=== PATIENT | female | born 1995 | race Caucasian/White ===

== ENCOUNTER 2017-04-23 14:53 | Emergency (ER) | payer OTHER, SELFPAY ==
[2017-04-23 15:24] VITALS: BP 109/75; PULSE 82; RESP 18; TEMP 37.4; O2SAT 100; BMI 16.8
--- NOTE | 2017-04-23 15:58 | HMH.EDUTC ---
[facility] [place] Disposition Clinical Impression: Encounter to obtain excuse from work Disposition: Home, Self-Care Condition on Discharge: Good Instructions: DI for Viral Syndrome Additional Instructions: Symptoms seem viral but also fit with other possible diagnosis. I was not able to rule out flu, strep, UTI or due to refusal of further testing. * no sign of bacterial infection. * Lots of fluids * rest * warm salt water gargles * warm fluids * sore throat lozenges * sleep elevated * humidifier/vaporizer * bland diet Referrals: Provider,Referral, MD [Primary Care Provider] - (See primary care or return to [facility] for new, worsening or persisting symptoms.) Forms: Work/School Release Time of Disposition: 16:12 Medical Decision Making Vital Signs: 04/23/17 15:24 Temperature 99.4 F Temperature Source Temporal Artery Scan Pulse Rate [Right Radial] 82 Respiratory Rate 18 Blood Pressure [Right Arm] 109/75 Blood Pressure Mean [Right Arm] 86 02 Sat by Pulse Oximetry 100 Oxygen Delivery Method Room Air - Donovan Inquiry Pt receiving controlled substance: No - Reevaluation(s) Reevaluation #1: Discussed possible differentials. pt refusing any testing including u/a, urine preg, strep or flu. States she knows it is none of those and just needs a work note. Aware accurate diagnosis is not possible but refusing still. I will take your best guess . pt's friend standing in [place] while I am speaking with ER MD regarding another pt. Standing pt has things to do and needs to go. Wanting note because that is all she needs . Aware I will work on discharge briefly once ERMD is finished looking at another pt with me. While working on discharge, friend up to nursing station again asking for work note. We have somewhere to be in 30 minutes . Pt aware she can leave without discharge if she needs to but that I am working on it at this time. The only thing she needs is the work note. Can't you just print that out now. Aware I will print that with the remaining of her discharge so she can go if she needs to but that I would recommend she wait to be discharged properly. [facility] [place] HPI - General Stated complaint: bad chen, sore throat Time Seen by Provider: 04/23/17 15:25 Mode of Arrival: Family Vehicle Source of Information: Patient Limitations: No Limitations Description of Symptoms (Recalled from Triage Doc. by RN): PT C/O MIGRAINE,DIARRHEA, VOMITING, SORE THROAT, EAR ACHE, BODY ACHES, AND CHILLS. HEENT Symptoms (Recalled from RN notes): Yes (MIGRAINE, EAR ACHE, SORE THROAT) Resp Symptoms (Recalled from RN notes): No Skin Symptoms (Recalled from RN notes): No MS Symptoms (Recalled from RN notes): No Functional Status (Recalled from RN notes): NA - History of Present Illness Provider Complaint: c/o feeling feverish, headache, bodyaches, chills, rhinorrhea, nasal congestion, onset of faint cough, vomiting, diarrhea, nausea all starting today while at work causing her to leave work. Two kids with flu less then 10 days ago. Patient for sure she doesn't have the flu or strep. Needs work excuse. Started w/ nausea last night. promethazine helped. Slept all night. Hasn't taken or tried anything today. Vomiting 2-3 times today but has since ate BBQ sandwich and chips. Diarrhea 2-3 times. Described as watery. Denies abdominal pain. - Related Data Home Medications Medication Instructions Recorded Confirmed No Known Home Medications [No 04/23/17 04/23/17 Known Home Medications] Allergies Allergy/AdvReac Type Severity Reaction Status Date / Time codeine [CODEINE] Allergy Unknown Verified 04/23/17 15:27 - Worker's Comp Is this a Worker's Comp case?: No [facility] History I have reviewed the patient's past medical history: Yes (denies any PMHx) Medical History: Denies:: Cancer, Diabetes Mellitus Type 1, Diabetes Mellitus Type 2, Hypertension, MRSA Other Surgeries: Yes: No Previous Surgery Amputation: No Fractures: No
[2017-04-23 16:15] VITALS: BP 110/75; PULSE 79; RESP 18; TEMP 37.5; O2SAT 100
== END 2017-04-23 16:15 | disposition home or self-care (01) ==
PROVIDERS: Emergency Provider Nurse Practitioner Family; Family Provider Family Medicine
DX: B34.9 Viral infection, unspecified (principal); Z88.6 Allergy status to analgesic agent
CPT/HCPCS: 99202

== ENCOUNTER → 2018-11-13 14:57 | Outpatient (CLI) | payer OTHER, SELFPAY ==
--- NOTE | 2018-11-13 15:00 | XR_ITS ---
PROCEDURE: XR HUMERUS LT CLINICAL INDICATION: X-Ray- Nexplanon placement COMPARISON: No exams were available for comparison FINDINGS: No fracture or dislocation. No lytic or blastic change. There is normal mineralization. The joint spaces are well-preserved. No significant degenerative/arthritic changes. No erosive changes evident. Other findings:There is a linear subcutaneous density along the mid and medial aspect of the arm consistent with implantable contraceptive device IMPRESSION: Nexplanon subdermal device present in in the subcutaneous region of the mid arm oriented parallel with the plane of the arm Dictated by: Manuel Winkler MD 11/13/2018 20:40 Electronically signed by Manuel Winkler MD in [place] 11/13/2018 20:40
== END ==
PROVIDERS: PCP Family Medicine; Visit Provider Nurse Practitioner Obstetrics & Gynecology
DX: Z97.5 Presence of (intrauterine) contraceptive device (principal)
CPT/HCPCS: 73060

== ENCOUNTER → 2019-11-19 14:01 | Outpatient (CLI) | payer OTHER, SELFPAY | PROVIDERS: PCP Nurse Practitioner; Visit Provider Nurse Practitioner | DX: R00.2 Palpitations (principal); R55 Syncope and collapse | CPT/HCPCS: 93270 ==

== ENCOUNTER 2019-11-19 14:51 | Emergency (ER) | payer OTHER, SELFPAY ==
[2019-11-19 15:15] VITALS: BP 112/76; PULSE 78; RESP 21; TEMP 37.2; O2SAT 99; BMI 15.3
--- NOTE | 2019-11-19 15:32 | HMH.EDUTC ---
[facility] [place] Disposition Clinical Impression: Viral syndrome Disposition: Home, Self-Care Condition on Discharge: Good Instructions: Nausea and Vomiting-Adult, Ondansetron, Preventing the Spread of Coronavirus Discharge Instructions Additional Instructions: *Monitor Temp, Over the counter Motrin or Tylenol as directed/as needed Tylenol every 4 hours and Motrin every 6 hours (as long as your family doctor has told you that you can take it) for fever or pain. and straight to ER if unable to lower temp less than 101.0 after medication given *Warm salt water gargles may help to soothe the throat *Throat Lozenges *Warm fluids like tea with honey may help to soothe the throat *Sleep elevated *Humidifier/Vaporizer Your throat swab was sent for culture. Those results are typically sent to your primary care. Be sure to follow up in 2-3 days with your family doctor/primary care physician if no improvement so they can review those result and treat if necessary. If you don?t have a primary care doctor, I recommend you get one but in the mean time, you will have to return to a walk in clinic Follow up IMMEDIATELY for new or worsening symptoms or no Noticeable improvement over the next 48-72 hours. 911 for difficulty breathing or swallowing You was tested for today for COVID19 your test result should be back in the next 3 hours, call back to the [facility] to see if your test results are back and the result You was given a handout with instructions for Self Quarantine and Self isolation for while you wait on test results and what to do if they are positive Prescriptions: Ondansetron [Zofran 4mg ODT] 4 mg PO TIDP PRN #9 tab PRN Reason: Vomiting Transmission Status: Received by [facility] Referrals: Whitney Hanson MD [Primary Care Provider] - As needed Forms: Work/School Release Time of Disposition: 15:38 Medical Decision Making - Donovan Inquiry Pt receiving controlled substance: No Donovan was queried for this patient: No Vital Signs: 11/19/19 15:15 Temperature 98.9 F Temperature Source Oral Pulse Rate [Right Brachial] 78 Respiratory Rate 21 Blood Pressure [Right Arm] 112/76 Blood Pressure Mean [Right Arm] 88 Blood Pressure Source [Right Arm] Automatic Cuff Blood Pressure Position [Right Arm] Sitting 02 Sat by Pulse Oximetry 99 Oxygen Delivery Method Room Air - Lab Data Lab results reviewed: Yes: I reviewed the patient's lab results. Orders (Tests/Meds): ORDERS Category Date Time Status Covid-19 Nasal PCR ([facility]) Routine Lab 11/19/19 15:10 Received Medical Decision Narrative: Patient denies risk of [facility] [place] HPI - General Stated complaint: fever,stuffy nose,body aches,vomiting Time Seen by Provider: 11/19/19 15:32 Mode of Arrival: Ambulatory Source of Information: Patient Limitations: No Limitations Description of Symptoms (Recalled from Triage Doc. by RN): PATIENT C/O NAUSEA, VOMITING, SORE THROAT, SHORTNESS OF BREATH, AND COUGH X 2 DAYS HEENT Symptoms (Recalled from RN notes): Yes Resp Symptoms (Recalled from RN notes): Yes Skin Symptoms (Recalled from RN notes): No MS Symptoms (Recalled from RN notes): No Functional Status (Recalled from RN notes): WNL - History of Present Illness Provider Complaint: Patient states that she has been having nausea and vomiting on and off since Tuesday States that now she is having sore throat, body aches and headache States that she was worried that she may have COVID and wanted to get tested States that she has also been having some coughing and nasal congestion and it makes her feel a little short of breath at times - Related Data Home Medications Medication Instructions Recorded Confirmed etonogestrel 68 mg subdermal 68 mg SUBDERMAL ONCE each 11/13/18 11/19/19 implant Previous Rx's Medication Instructions Recorded Ondansetron [Zofran 4mg ODT] 4 mg PO TIDP PRN #9 tab 11/19/19 Allergies Allergy/AdvReac Type Severity Reacti
[2019-11-19 15:40] VITALS: BP 112/76; PULSE 78; RESP 21; TEMP 37.2; O2SAT 99
[2019-11-19 18:31] LABS: UTC Influenza A Antigen Negative (Negative); UTC Strep Screen (Rapid) Negative (Negative)
[2019-11-19 18:32] LABS: UTC Influenza B Antigen Negative (Negative)
== END 2019-11-19 15:43 | disposition home or self-care (01) ==
PROVIDERS: Emergency Provider Nurse Practitioner; PCP Family Medicine
DX: B34.9 Viral infection, unspecified (principal); Z20.828 Contact with and (suspected) exposure to other viral communicable diseases; F17.210 Nicotine dependence, cigarettes, uncomplicated; Z88.5 Allergy status to narcotic agent
CPT/HCPCS: 87804; 87880; 99202; U0003

== ENCOUNTER 2020-02-13 17:07 | Emergency (ER) | payer OTHER, SELFPAY ==
[2020-02-13 17:15] VITALS: BP 160/98; PULSE 65; RESP 16; TEMP 37; O2SAT 98; BMI 15.2
[2020-02-13 17:29] LABS: Microscopic, Urine URINE MICROSCOPIC (MICROSCOPIC)
[2020-02-13 17:33] LABS: Basophils # 0.1 K/mm3 (0-0.2); Basophils % 0.8 % (0.1-2.0); Eosinophils # 0.2 K/mm3 (0.0-0.4); Hematocrit 45.9 % (37.0-47.0); Lymphocytes # 4.3 K/mm3 (0.7-4.5); Lymphocytes % 43.4 % (10-50); Mean Corpuscular HGB Conc 32.7 g/dL (31.8-35.4); Mean Corpuscular Hemoglobin 29.9 pg (27.0-31.2); Mean Corpuscular Volume 91.6 fl (81-99); Mean Platelet Volume 7.3 fl (7.4-10.4); Monocytes # 0.3 K/mm3 (0.1-1.0); Monocytes % 3.5 % (1.7-9.3); Neutrophils % 50.5 % (37.0-80.0); Platelet Count 263 K/mm3 (142-424); Red Blood Count 5.02 M/mm3 (4.20-5.40); Red Cell Distribution Width 13.4 % (11.5-17.5); White Blood Count 9.9 K/mm3 (4.8-10.8)
--- NOTE | 2020-02-13 17:33 | CT_ITS ---
PROCEDURE: CT ABDOMEN PELVIS W CON CLINICAL INDICATION: RLQ pain, concern for appendicitis Mid abdominal COMPARISON: No exams were available for comparison TECHNIQUE: IV Contrast: 75ML Isovue 370 Oral Contrast None Axial images obtained with sagittal and coronal reformats. All CT scans at the facility use one or more dose reduction, viz: automated exposure control, ma/kV adjustment per patient size (including targeted exams where dose is matched to indication, i.e. head), or iterative reconstruction technique. FINDINGS: LOWER THORAX: No acute finding ABDOMEN & PELVIS: The liver, spleen adrenal glands, pancreas gallbladder, have an unremarkable appearance. No renal or ureteral calculi. 12 mm hypodensity involves the right kidney posteriorly and may be due to cyst and could be confirmed with ultrasound. No evidence of appendicitis. There are some nondistended fluid-filled loops of small bowel noted which is nonspecific but could be seen with enteritis. No pelvic mass or abnormal fluid collection. No acute bony findings. IMPRESSION: 1. Possible mild enteritis 2. 12 mm hypodensity right kidney which could be due to small cyst and may be confirmed with ultrasound. 3. Otherwise negative Dictated by: Manuel Winkler MD 02/14/2020 07:23 Manuel Winkler MD in [place] 02/14/2020 07:23
[2020-02-13 17:42] LABS: Chloride 103 mmol/L (98-107); Potassium 3.6 mmoL/L (3.5-5.1); Sodium 139 mmol/L (136-145)
[2020-02-13 17:42] LABS: Appearance,Urine CLEAR (Clear); Bilirubin,Urine Negative (Negative); Blood, Urine TRACE-I (Negative); Color,Urine YELLOW (Yellow); Glucose,Urine (UA) Negative (Negative); Ketones,Urine Negative (Negative); Leukocyte Esterase,Urine Negative (Negative); Nitrate,Urine Negative (Negative); PH,Urine 6.5 (5.0-8.5); Protein,Urine Negative (Negative); Specific Gravity, Urine 1.015 (1.005-1.030); Urobilinogen,Urine 0.2 EU/dl (0.2)
[2020-02-13 17:44] LABS: Alanine Aminotransferase 12 U/L (12-78); Aspartate Amino Transferase 31 U/L (14-36); Blood Urea Nitrogen 8 mg/dl (7-17); Creatinine Clearance Estimated 90 mL/min (50-200); Estimated Glomerular Filt Rate 105 ml/min (>60); GFR (African American) 127 ML/MIN (>60); Urine Pregnancy, HCG Qual. Negative (Negative)
[2020-02-13 17:45] LABS: Albumin Level 5.2 g/dl (3.5-5.0); Albumin/Globulin Ratio 1.3 (1.1-1.8); Alkaline Phosphatase 58 U/L (38-126); Anion Gap 13.6 mEq/L (5-15); Bilirubin,Total 0.3 mg/dl (0.2-1.3); Carbon Dioxide 26 mmol/L (22.0-30.0); Glucose 98 mg/dl (74-100); Total Protein,Serum 9.2 g/dl (6.3-8.2)
--- NOTE | 2020-02-13 17:51 | PC.NURSE ---
notified rad of CT
[2020-02-13 17:54] LABS: Bacteria,Urine 2+ /lpf; RBC,Urine Occasional #/hpf (0-3); WBC,Urine Occasional #/hpf (0-3)
--- NOTE | 2020-02-13 18:04 | HMH.EDGENADL ---
ED Disposition Clinical Impression: Abdominal pain Qualifiers: Abdominal location: right lower quadrant Qualified Code(s): R10.31 - Right lower quadrant pain Disposition: Home, Self-Care Condition on Discharge: Fair Instructions: DI for Acute Abdominal Pain Additional Instructions: Continue take Tylenol/ibuprofen as needed for pain. Advised to return to emergency department if pain continues to worsen despite treatment already started to develop fevers, blood in stool, or uncontrollable vomiting. Drink plenty of fluids to prevent dehydration. Referrals: Joann Phillips APRN [Primary Care Provider] - - Critical Care Critical Care Time: No Attestation: On 02/13/20, the high probability of a clinically significant, sudden or life threatening deterioration of the following system(s) required my full and direct attention, intervention and personal management. The time I documented below is in addition to time spent performing reported procedures but includes the following listed in this critical care notation. Medical Decision Making - Medical Records Medical records reviewed: Yes: I reviewed the patient's medical records. - Donovan Inquiry Pt receiving controlled substance: No Vital Signs: 02/13/20 17:15 Temperature 98.6 F Temperature Source Oral Pulse Rate [Right] 65 Respiratory Rate 16 Blood Pressure [Right Arm] 160/98 H Blood Pressure Mean [Right Arm] 118 Blood Pressure Source [Right Arm] Automatic Cuff Blood Pressure Position [Right Arm] Sitting 02 Sat by Pulse Oximetry 98 Oxygen Delivery Method Room Air - Lab Data Lab Results 02/13/20 17:19: Urine Color Yellow, Urine Appearance Clear, Urine pH 6.5, Ur Specific [place] 1.015, Urine Protein Negative, Urine Glucose (UA) Negative, Urine Ketones Negative, Urine Blood Trace-i, Urine Nitrate Negative, Urine Bilirubin Negative, Urine Urobilinogen 0.2, Ur Leukocyte Esterase Negative, Urine RBC Occasional, Urine WBC Occasional, Ur Squamous Epith Cells 10-20, Urine Bacteria 2+ 02/13/20 17:20: WBC 9.9, RBC 5.02, Hgb 15.0, Hct 45.9, MCV 91.6, MCH 29.9, MCHC 32.7, RDW 13.4, Plt Count 263, MPV 7.3 L, Neut % (Auto) 50.5, Lymph % (Auto) 43.4, [place] % (Auto) 3.5, Eos % (Auto) 2.0, Baso % (Auto) 0.8, Neut # (Auto) 5.0, Lymph # (Auto) 4.3, [place] # (Auto) 0.3, Eos # (Auto) 0.2, Baso # (Auto) 0.1 02/13/20 17:20: Urine HCG, Qual Negative 02/13/20 17:20: Sodium 139, Potassium 3.6, Chloride 103, Carbon Dioxide 26, Anion Gap 13.6, BUN 8, Creatinine 0.70, Estimated Creat Clear 90, Estimated GFR 105, Est GFR ( Amer) 127, Glucose 98, Calcium 10.0, Total Bilirubin 0.3, AST 31, ALT 12, Alkaline Phosphatase 58, Total Protein 9.2 H, Albumin 5.2 H, Globulin 4.0 H, Albumin/Globulin Ratio 1.3 02/13/20 17:20: SARS-CoV-2 IgG Ab (Rapid) Negative, SARS-CoV-2 IgM Ab (Rapid) Negative Result diagrams: 02/13/20 17:20 02/13/20 17:20 Orders (Tests/Meds): ED MEDICATIONS Generic Name Dose Route Start Last Admin Trade Name Freq PRN Reason Stop Dose Admin Sodium Chloride 1,000 mls @ 999 mls/hr 02/13/20 19:30 02/13/20 19:19 Sod Chlor 0.9% 1000ml Bag IV 02/13/20 20:30 999 mls/hr .Q1H1M DANIELLA Administration Morphine Sulfate 4 mg 02/13/20 17:36 02/13/20 19:08 Morphine 4mg/Ml Syringe IV 03/14/20 17:35 4 mg Q2HP PRN Administration Moderate Pain Discontinued Medications Generic Name Dose Route Start Last Admin Trade Name Freq PRN Reason Stop Dose Admin Sodium Chloride 1,000 mls @ 999 mls/hr 02/13/20 17:30 02/13/20 17:21 Sod Chlor 0.9% 1000ml Bag IV 02/13/20 18:30 999 mls/hr .Q1H1M DANIELLA Administration Iopamidol 75 ml 02/13/20 18:21 02/13/20 18:22 Iopamidol-370 (76%);100ml Bottle IV 02/13/20 18:22 75 ml ONCE ONE Administration Ondansetron HCl 4 mg 02/13/20 17:33 02/13/20 17:37 Ondansetron 4mg/2ml Vial IV 02/13/20 17:34 4 mg ONCE ONE Administration Sodium Chloride 10 ml 02/13/20 18:21 02/13/20 18:22 Sodium Chloride 0.9% 10ml S
[2020-02-13 18:29] LABS: Coronavirus 19 IgG Antibody Negative (Negative); Coronavirus 19 IgM Antibody Negative (Negative)
--- NOTE | 2020-02-13 18:30 | PC.NURSE ---
pt returned from rad
--- NOTE | 2020-02-13 19:13 | US_ITS ---
PROCEDURE: US TRANSVAGINAL CLINICAL INDICATION: RLQ pain, eval for Ovarian torsion COMPARISON: CT CT ABDOMEN PELVIS W CON from 02/13/2020 FINDINGS: Uterus is 6 3 x 4 cm with a combined endometrial thickness of 2 mm. The ovaries are unremarkable. Bilateral ovarian blood flow noted. No cul-de-sac fluid apparent. IMPRESSION: Negative pelvic ultrasound Dictated by: Manuel Winkler MD 02/14/2020 07:45 Manuel Winkler MD in [place] 02/14/2020 07:45
[2020-02-13 20:45] VITALS: BP 138/75; PULSE 70; RESP 16; TEMP 36.7; O2SAT 98
== END 2020-02-13 20:50 | disposition home or self-care (01) ==
PROVIDERS: Emergency Provider Emergency Medicine; PCP Nurse Practitioner
DX: R10.31 Right lower quadrant pain (principal); R00.2 Palpitations; F17.210 Nicotine dependence, cigarettes, uncomplicated; F12.10 Cannabis abuse, uncomplicated; Z01.84 Encounter for antibody response examination
CPT/HCPCS: 74177; 76830; 80053; 81001; 81025; 85025; 86328; 87086; 96365; 96366; 96375; 99283; J2405; Q9967

== ENCOUNTER 2020-09-02 13:40 | Emergency (ER) | payer OTHER, SELFPAY ==
[2020-09-02 13:41] VITALS: BP 108/73; PULSE 91; RESP 14; TEMP 36.9; O2SAT 97; BMI 14.8
--- NOTE | 2020-09-02 14:08 | HMH.EDGENADL ---
ED Disposition Clinical Impression: Vaginal bleeding, Anxiety, Presence of subcutaneous contraceptive implant Abdominal pain Qualifiers: Abdominal location: lower abdomen, unspecified Qualified Code(s): R10.30 - Lower abdominal pain, unspecified Disposition: Home, Self-Care Condition on Discharge: Good Additional Instructions: Follow-up with surgeon for Nexplanon removal as scheduled. Referrals: Whitney Hanson MD [Primary Care Provider] - - Critical Care Critical Care Time: No Attestation: On 09/02/20, the high probability of a clinically significant, sudden or life threatening deterioration of the following system(s) required my full and direct attention, intervention and personal management. The time I documented below is in addition to time spent performing reported procedures but includes the following listed in this critical care notation. Medical Decision Making - Donovan Inquiry Pt receiving controlled substance: No Vital Signs: 09/02/20 13:41 Temperature 98.5 F Temperature Source Oral Pulse Rate [Right] 91 H Respiratory Rate 14 Blood Pressure [Right Arm] 108/73 L Blood Pressure Mean [Right Arm] 84 02 Sat by Pulse Oximetry 97 Oxygen Delivery Method Room Air - Lab Data Lab Results 09/02/20 14:11: WBC 5.2, RBC 4.69, Hgb 13.6, Hct 41.8, MCV 89.2, MCH 29.0, MCHC 32.5, RDW 12.1, Plt Count 235, MPV 7.1 L, Neut % (Auto) 47.7, Lymph % (Auto) 41.3, [place] % (Auto) 6.1, Eos % (Auto) 4.2, Baso % (Auto) 0.7, Neut # (Auto) 2.5, Lymph # (Auto) 2.1, [place] # (Auto) 0.3, Eos # (Auto) 0.2, Baso # (Auto) 0.0 09/02/20 14:11: Sodium 139, Potassium 3.9, Chloride 106, Carbon Dioxide 25, Anion Gap 11.9, BUN 10, Creatinine 0.70, Estimated Creat Clear 88, Estimated GFR 105, Est GFR ( Amer) 127, Glucose 86, Calcium 9.0, Total Bilirubin 0.3, AST 31, ALT 14, Alkaline Phosphatase 60, Total Protein 7.7, Albumin 4.6, Globulin 3.1, Albumin/Globulin Ratio 1.5 09/02/20 14:11: Lipase 29 07/13/21 14:30: Urine Color Yellow, Urine Appearance Sl cloudy, Urine pH 7.5, Ur Specific [place] 1.020, Urine Protein Negative, Urine Glucose (UA) Negative, Urine Ketones Negative, Urine Blood Trace-l, Urine Nitrate Positive, Urine Bilirubin Negative, Urine Urobilinogen 0.2, Ur Leukocyte Esterase Trace, Urine RBC None, Urine WBC None, Ur Squamous Epith Cells None, Urine Bacteria Trace 09/02/20 14:30: Urine HCG, Qual Negative Result diagrams: 09/02/20 14:11 09/02/20 14:11 - Radiology Data #1 Image(s): Humerus Image Reviewed: Yes I reviewed the patient's radiology image Nexplanon implant present approximately mid upper arm. - Physician Consults Physician Consulted: Sree Time: 14:25 Reason -: Gynocological Eval/Care Comment/Response: States that he is both in his office this week and will be out of town next week, therefore the soonest he would be able to see the patient would be 2-1/2 weeks. He feels it is likely that her Nexplanon implant will have to be taken out in surgery with fluoroscopy given the history. He feels her best option at this point is to follow-up with the surgeon in [place] for removal as already scheduled. Additional Consult: Malathi Time: 14:40 Reason -: Surgical Eval/Care Comment/Response: He has never taken out a Nexplanon implant and does not perform that procedure. Medical Decision Narrative: After my discussion with Dr. Balbuena, mother wants me to check to see if there is anybody else here who can take out the implant sooner. In general surgery consulted. General Adult HPI - General Chief complaint: Nausea/Vomiting/Diarrhea Stated complaint: nexplanon travelling up lt arm Time Seen by Provider: 09/02/20 14:09 Mode of Arrival: Family Vehicle Limitations: No Limitations Description of Symptoms (Recalled from ER Triage Doc. by RN): Patient c/o N/V, lower abdominal pain, left arm pain and mood swings for the last three months but worse in the last week. Patient stated in ED triage, I have a Nexplanon placed
--- NOTE | 2020-09-02 14:20 | PC.NURSE ---
Dr Balbuena to call back
--- NOTE | 2020-09-02 14:26 | XR_ITS ---
PROCEDURE: XR HUMERUS LT CLINICAL INDICATION: nexplanon location COMPARISON: CR XR HUMERUS LT from 11/13/2018 FINDINGS: No fracture or dislocation. No lytic or blastic change. There is normal mineralization. The joint spaces are well-preserved. No significant degenerative/arthritic changes. No erosive changes evident. Other findings:Nexplanon implant is once again noted and does not appear significantly changed compared to 11/13/2018. IMPRESSION: No change with no acute finding. Dictated by: Manuel Winkler MD 09/02/2020 15:03 Manuel Winkler MD in [place] 09/02/2020 15:03
[2020-09-02 14:38] LABS: Microscopic, Urine URINE MICROSCOPIC (MICROSCOPIC)
[2020-09-02 14:41] LABS: Appearance,Urine SL CLOUDY (Clear); Bilirubin,Urine Negative (Negative); Blood, Urine TRACE-L (Negative); Color,Urine YELLOW (Yellow); Glucose,Urine (UA) Negative (Negative); Ketones,Urine Negative (Negative); Leukocyte Esterase,Urine TRACE (Negative); Nitrate,Urine POSITIVE (Negative); PH,Urine 7.5 (5.0-8.5); Protein,Urine Negative (Negative); Urobilinogen,Urine 0.2 EU/dl (0.2)
[2020-09-02 14:44] LABS: Chloride 106 mmol/L (98-107); Potassium 3.9 mmoL/L (3.5-5.1); Sodium 139 mmol/L (136-145)
[2020-09-02 14:46] LABS: Urine Pregnancy, HCG Qual. Negative (Negative)
[2020-09-02 14:47] LABS: Alanine Aminotransferase 14 U/L (12-78); Albumin Level 4.6 g/dl (3.5-5.0); Albumin/Globulin Ratio 1.5 (1.1-1.8); Alkaline Phosphatase 60 U/L (38-126); Anion Gap 11.9 mEq/L (5-15); Aspartate Amino Transferase 31 U/L (14-36); Bilirubin,Total 0.3 mg/dl (0.2-1.3); Blood Urea Nitrogen 10 mg/dl (7-17); Carbon Dioxide 25 mmol/L (22.0-30.0); Creatinine Clearance Estimated 88 mL/min (50-200); Estimated Glomerular Filt Rate 105 ml/min (>60); GFR (African American) 127 ML/MIN (>60); Globulin 3.1 g/dL (1.3-3.2); Glucose 86 mg/dl (74-100); Total Protein,Serum 7.7 g/dl (6.3-8.2)
[2020-09-02 14:48] LABS: Lipase 29 U/L (23-300)
--- NOTE | 2020-09-02 14:49 | PC.NURSE ---
radiology notified that ER MD is requesting a disc for patient Xray
[2020-09-02 15:00] LABS: Basophils % 0.7 % (0.1-2.0); Eosinophils # 0.2 K/mm3 (0.0-0.4); Eosinophils % 4.2 % (0.1-12.0); Hematocrit 41.8 % (37.0-47.0); Hemoglobin 13.6 g/dL (12.2-16.2); Lymphocytes # 2.1 K/mm3 (0.7-4.5); Lymphocytes % 41.3 % (10-50); Mean Corpuscular HGB Conc 32.5 g/dL (31.8-35.4); Mean Corpuscular Volume 89.2 fl (81-99); Mean Platelet Volume 7.1 fl (7.4-10.4); Monocytes # 0.3 K/mm3 (0.1-1.0); Monocytes % 6.1 % (1.7-9.3); Neutrophils # 2.5 K/mm3 (1.8-7.8); Neutrophils % 47.7 % (37.0-80.0); Platelet Count 235 K/mm3 (142-424); Red Blood Count 4.69 M/mm3 (4.20-5.40); Red Cell Distribution Width 12.1 % (11.5-17.5); White Blood Count 5.2 K/mm3 (4.8-10.8)
[2020-09-02 15:03] LABS: Bacteria,Urine Trace /lpf
[2020-09-02 15:15] VITALS: BP 111/61; PULSE 89; RESP 16; TEMP 37; O2SAT 97
== END 2020-09-02 15:29 | disposition home or self-care (01) ==
PROVIDERS: Emergency Provider Emergency Medicine; PCP Family Medicine
DX: N93.8 Other specified abnormal uterine and vaginal bleeding (principal); R11.2 Nausea with vomiting, unspecified; Z97.5 Presence of (intrauterine) contraceptive device; F17.210 Nicotine dependence, cigarettes, uncomplicated; F41.8 Other specified anxiety disorders; R10.30 Lower abdominal pain, unspecified
CPT/HCPCS: 73060; 80053; 81001; 81025; 83690; 85025; 99283

== ENCOUNTER 2020-10-21 09:09 | Emergency (ER) | payer OTHER, SELFPAY ==
[2020-10-21 09:45] VITALS: BP 113/68; PULSE 91; RESP 20; TEMP 36.9; O2SAT 97; BMI 15.7
[2020-10-21 10:03] LABS: UTC Strep Screen (Rapid) Negative (Negative)
--- NOTE | 2020-10-21 10:31 | HMH.EDUTC ---
[facility] [place] Disposition Clinical Impression: Sinusitis Qualifiers: Sinusitis location: unspecified location Chronicity: unspecified Qualified Code(s): J32.9 - Chronic sinusitis, unspecified Disposition: Home, Self-Care Condition on Discharge: Good Instructions: Sinusitis, DI for Sinusitis, DI for COVID-19 (Suspected or Confirmed ), Preventing the Spread of Coronavirus Discharge Instructions Additional Instructions: *Monitor Temp, Over the counter Motrin or Tylenol as directed/as needed Tylenol every 4 hours and Motrin every 6 hours (as long as your family doctor has told you that you can take it) for fever or pain. and straight to ER if unable to lower temp less than 101.0 after medication given *Warm salt water gargles may help to soothe the throat *Throat Lozenges *Warm fluids like tea with honey may help to soothe the throat *Sleep elevated *Humidifier/Vaporizer Your throat swab was sent for culture. Those results are typically sent to your primary care. Be sure to follow up in 2-3 days with your family doctor/primary care physician if no improvement so they can review those result and treat if necessary. If you don?t have a primary care doctor, I recommend you get one but in the mean time, you will have to return to a walk in clinic Follow up IMMEDIATELY for new or worsening symptoms or no Noticeable improvement over the next 48-72 hours. 911 for difficulty breathing or swallowing You were tested for today for COVID19 your test result should be back in the next 24-48 hours, you may call to the [facility] to see if your test results are back in the next 48 hours [phone] [facility] hours are 9am-9pm You was given a handout with instructions for Self Quarantine and Self isolation for while you wait on test results and what to do if they are positive If you are positive the Health Dept will be contacting you also Make sure to take your Vitamins Vit. C Vit D and Zinc if you can take them Prescriptions: Amoxicillin/Potassium Clav [Augmentin 875-125 Tablet] 1 tab PO Q12H 7 Days #14 tab Transmission Status: Pending to [facility] Fluticasone Propionate [Flonase 50mcg nasal spray 16gm] 1 spr NS DAILY #1 ml Transmission Status: Pending to [facility] methylPREDNISolone [Medrol 4mg tab] 4 mg PO DIRECTED #21 tab Transmission Status: Pending to [facility] Ondansetron [Zofran 4mg ODT] 4 mg PO TIDP PRN #6 tab PRN Reason: Nausea Transmission Status: Pending to [facility] Referrals: Whitney Hanson MD [Primary Care Provider] - As needed Forms: Work/School Release Time of Disposition: 10:38 Medical Decision Making - Donovan Inquiry Pt receiving controlled substance: No Donovan was queried for this patient: No Vital Signs: 10/21/20 09:45 Temperature 98.4 F Temperature Source Oral Pulse Rate [Right Brachial] 91 H Respiratory Rate 20 Blood Pressure [Right Arm] 113/68 Blood Pressure Mean [Right Arm] 83 Blood Pressure Source [Right Arm] Automatic Cuff Blood Pressure Position [Right Arm] Sitting 02 Sat by Pulse Oximetry 97 Oxygen Delivery Method Room Air - Lab Data Lab results reviewed: Yes: I reviewed the patient's lab results. Lab Results 10/21/20 09:54: Strep Scn Rapid Clinic Negative Orders (Tests/Meds): ORDERS Category Date Time Status Covid-19 Nasal PCR ([facility]) Routine Lab 10/21/20 09:45 Received Strep Screen Confirmation Stat Micro 10/21/20 09:54 Received Medical Decision Narrative: Patient reports currently having period' [facility] [place] HPI - General Stated complaint: Fever; chills; sore throat; cough Time Seen by Provider: 10/21/20 10:32 Mode of Arrival: Ambulatory Source of Information: Patient Limitations: No Limitations Description of Symptoms (Recalled from Triage Doc. by RN): PATIENT C/O SORE THROAT, VOMITING, CHILLS, SWEATS, FEVER, AND COUGH. REQUESTING COVID TEST HEENT Symptoms (Recalled from RN notes): Yes Resp Symptoms (Recalle
[2020-10-21 10:42] VITALS: BP 113/68; PULSE 91; RESP 20; TEMP 36.9; O2SAT 97
--- NOTE | 2020-10-23 08:32 | PC.NURSE ---
voicemail left for pt asking for a return call
== END 2020-10-21 10:44 | disposition home or self-care (01) ==
PROVIDERS: Emergency Provider Nurse Practitioner; PCP Family Medicine
DX: U07.1 COVID-19 (principal); J32.9 Chronic sinusitis, unspecified; F17.210 Nicotine dependence, cigarettes, uncomplicated
CPT/HCPCS: 87880; 99203; G0463; U0003

== ENCOUNTER 2021-03-15 11:49 | Emergency (ER) | payer OTHER, SELFPAY ==
[2021-03-15] VITALS (7 sets, daily range): BP systolic 99–116; BP diastolic 72–75; PULSE 78; RESP 18; TEMP 36.6; O2SAT 98; BMI 15.3
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
--- NOTE | 2021-03-15 12:49 | PC.NURSE ---
urine collected and sent to lab
[2021-03-15 13:00] LABS: Urine Pregnancy, HCG Qual. Negative (Negative)
== END 2021-03-15 13:50 | disposition home or self-care (01) ==
PROVIDERS: Emergency Provider Emergency Medicine; PCP Family Medicine
DX: S39.012A Strain of muscle, fascia and tendon of lower back, initial encounter (principal); S80.02XA Contusion of left knee, initial encounter; S86.912A Strain of unspecified muscle(s) and tendon(s) at lower leg level, left leg, initial encounter; V59.3XXA Occupant (driver) (passenger) of pick-up truck or van injured in unspecified nontraffic accident, initial encounter; Y92.89 Other specified places as the place of occurrence of the external cause; Z88.2 Allergy status to sulfonamides
CPT/HCPCS: 72100; 73552; 73562; 73590; 81025; 99282

== ENCOUNTER → 2021-05-04 08:21 | Outpatient (CLI) | payer OTHER, SELFPAY ==
--- NOTE | 2021-05-04 08:28 | FL_ITS ---
FINAL REPORT CLINICAL HISTORY: UPPER ABD PAIN..3.07 fluoro time FINDINGS: UPPER GI EXAM HISTORY: epigastric pain PROCEDURE: The patient ingested barium. Effervescent crystals were also administered. Spot and overhead films were obtained. FINDINGS: The esophagus is normal. There is no hiatal hernia. There is no gastroesophageal reflux. Peristalsis is normal. The rugal fold pattern of the stomach is normal. The duodenal bulb is normal. FLUOROSCOPY TIME: 3 minutes 7 seconds. 19 radiographs were obtained. IMPRESSION: Normal upper GI. Films reviewed , interpreted and dictated by Dr. Obrien. Transcribed by Juno Naylor PA-C. Reviewed, Interpreted and Dictated by Caleb Obrien III, MD Transcribed by HIEU Smith Authenticated by Caleb Obrien III, MD on 05/04/2021 11:12:19 AM [facility]
--- NOTE | 2021-05-04 08:28 | US_ITS ---
FINAL REPORT CLINICAL HISTORY: UPPER ABD PAIN FINDINGS: Sonographic images of the right upper quadrant were obtained. The pancreas is partially obscured.The liver has an unremarkable appearance. There is a small amount of sludge within the gallbladder without evidence of gallstones. There is no evidence of biliary ductal dilatation.The common duct measures 2 mm. Limited images of the right kidney are unremarkable. IMPRESSION: Small amount of sludge within the gallbladder without evidence of gallstones. Reviewed, Interpreted and Dictated by Caleb Obrien III, MD Transcribed by Thuy Stevens Authenticated by Caleb Obrien III, MD on 05/04/2021 10:11:[address] [facility]
== END ==
PROVIDERS: PCP Family Medicine; Visit Provider Family Medicine
DX: R10.10 Upper abdominal pain, unspecified (principal)
CPT/HCPCS: 74246; 76705

== ENCOUNTER 2022-01-12 13:45 | Emergency (ER) | payer OTHER, SELFPAY ==
[2022-01-12 14:00] VITALS: BP 113/68; PULSE 75; RESP 18; TEMP 36.7; O2SAT 100; BMI 15.5
--- NOTE | 2022-01-12 14:28 | EXP.UTC ---
Discharge Plan Disposition Patient Disposition: Home, Self-Care Condition: Good Prescriptions Prescriptions: New methylprednisolone [Medrol (Dustin)] 4 mg tablets,dose pack See Rx Instructions .Route .COMPLEX 6 Days Qty: 21 0RF Rx Instructions: taper pack; hydroxyzine HCl 25 mg tablet 25 mg PO TID PRN (Reason: itching) Qty: 20 0RF No Action estradiol 2 mg tablet 2 mg PO DAILY Qty: 30 2RF Nexplanon 68 mg implant 68 mg SUBDERMAL ONCE Referrals Follow up/Referrals: Whitney Hanson MD [Primary Care Provider] - See instructions Activity Restrictions/Add. Instructions Additional Instructions/Restrictions: Start oral steriods tomorrow Take hydroxyzine as prescribed for itching Follow up with your Family Doctor or Dermatology if no improvement or any worsening of symptoms Follow up with your Family Doctor if needed Straight to ER if any life threatening symptoms Clinical Impressions Clinical Impression: Rash Instructions Patient Instructions: DI for Rash, Hydroxyzine [place]charge [place] Provider[place] E[place] [facility] [place] General Stated complaint: rash on face, chest, arms, legs Mode of Arrival: Ambulatory Source of Information: Patient Limitations: No Limitations Time Seen by Provider: 01/12/22 14:28 Description of Symptoms (Recalled from Triage Doc. by RN): PATIENT C/O ITCHY RASH ALL OVER SINCE YESTERDAY HEENT Symptoms (Recalled from RN notes): No Resp Symptoms (Recalled from RN notes): No Skin Symptoms (Recalled from RN notes): No MS Symptoms (Recalled from RN notes): No Functional Status (Recalled from RN notes): WNL History of Present Illness Provider Complaint: Patient states that has been having itchy rash on her chest face, back and arms States that she hasnt been around anything that she is allergic to that she is aware of but rash started yesterday and has continued to get worse and spread Related Data Home Medications Medication Instructions Recorded Confirmed etonogestrel 68 mg subdermal 68 mg subdermal ONCE control 11/13/18 10/14/21 implant (Nexplanon) Previous Rx's Medication Instructions Recorded estradiol 2 mg tablet 2 mg PO DAILY #30 tabs 10/14/21 hydroxyzine HCl 25 mg tablet 25 mg PO TID PRN itching #20 tabs 01/12/22 methylprednisolone 4 mg tablets in See Rx Instructions .Route 01/12/22 a dose pack (Medrol (Dustin)) .COMPLEX 6 days #21 tabs Allergies Allergy/AdvReac Type Severity Reaction Status Date / Time codeine [CODEINE] Allergy Unknown Verified 10/14/21 15:08 fentanyl Allergy Vomiting Verified 10/14/21 15:08 Worker's Comp Is this a Worker's Comp case?: No PFSH PFSH Medical History (Updated 01/12/22 @ 15:08 by Erika Lopez APRN) Anxiety Breakthrough bleeding on Nexplanon Depression Seizures Underweight Surgical History (Updated 01/12/22 @ 14:12 by Ladonna Ferrara RN) History of tonsillectomy Social History (Updated 01/12/22 @ 14:12 by Ladonna Ferrara RN) Smoking Status: Former smoker second hand exposure: Yes alcohol intake: current substance use type: marijuana current occupational status: employed Travel in the last 8 weeks: None household members: family housing: house number of children: 0 current occupation: childcare director current occupational exposures/hazards: No ROS Obtained: Yes All systems reviewed & no additional complaints except as documented and Yes Systems reviewed as appropriate & no additional complaints except as documented Constitutional Constitutional: Reports system reviewed and no additional complaints, except as documented and Reports as per HPI Cardiovascular Cardiovascular: Reports system reviewed and no additional complaints, except as documented and Reports as per HPI Respiratory Respiratory: Reports system reviewed and no additional complaints, except as documented and Reports as per HPI Gastrointestinal Gastrointestingal: Reports system reviewed and no additional comp
[2022-01-12 14:44] VITALS: BP 113/68; PULSE 75; RESP 18; TEMP 36.7; O2SAT 100
== END 2022-01-12 15:15 | disposition home or self-care (01) ==
PROVIDERS: Emergency Provider Nurse Practitioner; PCP Family Medicine
DX: R21 Rash and other nonspecific skin eruption (principal)
CPT/HCPCS: 99212

== ENCOUNTER 2022-04-07 15:25 | Emergency (ER) | payer OTHER, SELFPAY ==
[2022-04-07 15:45] VITALS: BP 109/65; PULSE 56; RESP 20; TEMP 37; O2SAT 100; BMI 15.3
--- NOTE | 2022-04-07 15:57 | EXP.UTC ---
Discharge Plan Disposition Patient Disposition: Home, Self-Care Condition: Good Prescriptions Prescriptions: New ondansetron 4 mg Tablet,Disintegrating 4 mg PO Q8H PRN (Reason: Nausea) Qty: 12 0RF No Action Nexplanon 68 mg implant 68 mg SUBDERMAL ONCE Referrals Follow up/Referrals: Whitney Hanson MD [Primary Care Provider] - See instructions Activity Restrictions/Add. Instructions Additional Instructions/Restrictions: Drink plenty of fluids. Water or a sports electrolyte drink like gatorade would be best. Take tylenol for pain or fever. Take the medications as directed. Follow up with your regular doctor. GO TO THE ER FOR ANY WORSENING SYMPTOMS Clinical Impressions Clinical Impression: Gastroenteritis Stand Alone Forms Stand Alone Forms: Work/School Release Instructions Patient Instructions: DI for Viral Gastroenteritis -- Adult, Ondansetron Discharge ED Provider: Erlin Cisneros [facility] General Stated complaint: vomiting Time Seen by Provider: 04/07/22 15:57 History of Present Illness Provider Complaint: She states that since last night she has had n/v/d. She denies any abdominal pain. She has had chills, but no fever. 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 Related Data Home Medications Medication Instructions Recorded Confirmed etonogestrel 68 mg subdermal 68 mg subdermal ONCE control 11/13/18 04/07/22 implant (Nexplanon) Previous Rx's Medication Instructions Recorded ondansetron 4 mg disintegrating 4 mg PO Q8H PRN Nausea #12 tabs 04/07/22 tablet Allergies Allergy/AdvReac Type Severity Reaction Status Date / Time codeine [CODEINE] Allergy Unknown Verified 04/07/22 16:00 fentanyl Allergy Vomiting Verified 04/07/22 16:00 [facility] Disclaimer: The information contained in this section may have been updated after the patient was seen, as this information can be updated by other users. 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 current occupational exposures/hazards: No ROS Obtained: Yes All systems reviewed & no additional complaints except as documented Constitutional Constitutional: Denies chills, Denies fever(s) and Reports poor appetite ENT Ears, Nose, Mouth, and Throat: Denies dizziness and Denies sore throat Cardiovascular Cardiovascular: Denies dyspnea Respiratory Respiratory: Denies chest congestion, Denies cough and Denies dyspnea Gastrointestinal Gastrointestingal: Reports as per HPI, cramping, diarrhea, nausea and vomiting; Denies abdominal pain Genitourinary Female Genitourinary: Denies difficulty voiding, Denies dysuria, Denies hematuria, Denies urinary frequency, Denies urinary incontinence, Denies urinary hesitancy and Denies urinary urgency Musculoskeletal Musculoskeletal: Denies arthralgias Integumentary/Breasts Skin/Breast: Denies rash Neurologic Neurologic: Denies dizziness Physical Exam General General appearance: alert and in no apparent distress Head Head exam: atraumatic and normocephalic Eye Eye exam: Present normal appearance, PERRL and EOMI ENT ENT exam: Present normal exam, normal oropharynx, mucous membranes moist, TM's normal bilaterally and normal external ear exam Neck Neck exam: Present normal inspection, full ROM and trachea midline; Absent tenderness, me
[2022-04-07 16:10] LABS: UTC Strep Screen (Rapid) Negative (Negative)
[2022-04-07 16:50] VITALS: BP 109/65; PULSE 56; RESP 20; TEMP 37; O2SAT 100
== END 2022-04-07 16:50 | disposition home or self-care (01) ==
PROVIDERS: Emergency Provider Nurse Practitioner Family; PCP Family Medicine
DX: K52.9 Noninfective gastroenteritis and colitis, unspecified (principal)
CPT/HCPCS: 87880; 99212; 99213; G0463

== ENCOUNTER → 2022-06-10 10:01 | Outpatient (CLI) | payer OTHER, SELFPAY | LOC: RT 10:02 | PROVIDERS: PCP Nurse Practitioner Family; Visit Provider Nurse Practitioner Family | DX: R55 Syncope and collapse (principal); R00.2 Palpitations | CPT/HCPCS: 93225; 93226 ==

== ENCOUNTER → 2022-06-14 15:36 | Outpatient (CLI) | payer OTHER, SELFPAY ==
--- NOTE | 2022-06-14 16:29 | CT_ITS ---
PROCEDURE INFORMATION: Exam: CTA Chest With Contrast Exam date and time: 06/14/2022 4:53 PM Age: 26 years old Clinical indication: Shortness of breath and other: Syncope; Additional info: Syncope/svt TECHNIQUE: Imaging protocol: Computed tomographic angiography of the chest with contrast. 3D rendering (Not supervised by radiologist): MIP and/or 3D reconstructed images were created by the technologist. Radiation optimization: All CT scans at this facility use at least one of these dose optimization techniques: automated exposure control; mA and/or kV adjustment per patient size (includes targeted exams where dose is matched to clinical indication); or iterative reconstruction. Contrast material: ISOVUE; Contrast volume: 70 ml; Contrast route: INTRAVENOUS (IV); REPORTING DATA: Count of CT and Cardiac NM exams in prior 12 months: This patient has received 0 known CTs and 0 known cardiac nuclear medicine studies in the 12 months prior to the current study. COMPARISON: [facility] CT CHEST W/O CONTRAST 06/13/2016 12:51 AM FINDINGS: Pulmonary arteries: Normal. No pulmonary emboli. Aorta: Unremarkable. No aortic aneurysm. No aortic dissection. Lungs: Unremarkable. No consolidation. No masses. Pleural spaces: Unremarkable. No pneumothorax. No pleural effusion. Heart: Unremarkable. No cardiomegaly. No pericardial effusion. Lymph nodes: Unremarkable. No enlarged lymph nodes. Bones/joints: Unremarkable. No acute fracture. Soft tissues: Unremarkable. IMPRESSION: Unremarkable exam.
== END ==
LOC: LAB 16:30 → RAD 17:08
PROVIDERS: PCP Nurse Practitioner Family; Visit Provider Nurse Practitioner
DX: R06.00 Dyspnea, unspecified (principal); R07.9 Chest pain, unspecified; R42 Dizziness and giddiness; R55 Syncope and collapse; I47.1 Supraventricular tachycardia; R00.0 Tachycardia, unspecified; R00.2 Palpitations; R94.31 Abnormal electrocardiogram [ECG] [EKG]
CPT/HCPCS: 71275; Q9967

== ENCOUNTER → 2022-06-14 15:53 | Outpatient (CLI) | payer OTHER, SELFPAY ==
--- NOTE | 2022-06-14 15:59 | MR_ITS ---
PROCEDURE INFORMATION: Exam: MR Head Without Contrast Exam date and time: 06/14/2022 3:56 PM Age: 26 years old Clinical indication: Dizziness; Additional info: Dizziness, syncope. Headache. Symptoms for years. TECHNIQUE: Imaging protocol: Magnetic resonance imaging of the head without contrast. COMPARISON: HDO CT HEAD W/O CONTRAST 06/13/2016 12:44 AM FINDINGS: Brain: No acute infarct. No mass effect or midline shift. No extra-axial collection. No acute intracranial hemorrhage. Basal cisterns are patent. Cerebral ventricles: Normal. No ventriculomegaly. Bones/joints: Unremarkable. Paranasal sinuses: Normal as visualized. No acute sinusitis. Mastoid air cells: Normal as visualized. No mastoid effusion. Orbital cavities: Unremarkable. Soft tissues: Unremarkable. IMPRESSION: No hydrocephalus, acute intracranial hemorrhage, or mass effect.
== END ==
LOC: RAD 15:53
PROVIDERS: PCP Nurse Practitioner Family; Visit Provider Nurse Practitioner Family
DX: R55 Syncope and collapse (principal); R42 Dizziness and giddiness
CPT/HCPCS: 70551

== ENCOUNTER → 2022-06-15 13:33 | Outpatient (CLI) | payer OTHER, SELFPAY ==
[2022-06-15 14:13] LABS: Basophils % 0.4 % (0.1-2.0); Eosinophils # 0.1 K/mm3 (0.0-0.4); Eosinophils % 1.5 % (0.1-12.0); Hematocrit 40.4 % (37.0-47.0); Hemoglobin 13.1 g/dL (12.2-16.2); Lymphocytes # 2.4 K/mm3 (0.7-4.5); Lymphocytes % 41.3 % (10-50); Mean Corpuscular HGB Conc 32.6 g/dL (31.8-35.4); Mean Corpuscular Hemoglobin 28.7 pg (27.0-31.2); Mean Corpuscular Volume 88.1 fl (81-99); Mean Platelet Volume 8.1 fl (7.4-10.4); Monocytes # 0.2 K/mm3 (0.1-1.0); Monocytes % 3.6 % (1.7-9.3); Neutrophils % 53.1 % (37.0-80.0); Platelet Count 216 K/mm3 (142-424); Red Blood Count 4.58 M/mm3 (4.20-5.40); Red Cell Distribution Width 13.6 % (11.5-17.5); White Blood Count 5.7 K/mm3 (4.8-10.8)
[2022-06-15 14:52] LABS: Alanine Aminotransferase 18 U/L (12-78); Albumin Level 4.4 g/dl (3.5-5.0); Alkaline Phosphatase 55 U/L (38-126); Anion Gap 10.4 mEq/L (5-15); Aspartate Amino Transferase 24 U/L (14-36); Bilirubin,Indirect 0.4 mg/dL (0.0-0.9); Bilirubin,Total 0.4 mg/dl (0.2-1.3); Bilirubin,Unconjugated 0.5 mg/dL (0.0-1.1); Blood Urea Nitrogen 7 mg/dl (7-17); Calcium 8.8 mg/dl (8.4-10.2); Carbon Dioxide 28 mmol/L (22.0-30.0); Chloride 104 mmol/L (98-107); Chol/HDL Ratio 3.3 (1-3.5); Cholesterol 177 mg/dl (140-200); Estimated Glomerular Filt Rate 103 ml/min (>60); GFR (African American) 124 ML/MIN (>60); Glucose 77 mg/dl (74-100); HCG,Quantitative < 2 mIU/ml (0-5.42); HDL Cholesterol 53 mg/dl (40-60); Potassium 3.4 mmoL/L (3.5-5.1); Sodium 139 mmol/L (136-145); Total Protein,Serum 7.3 g/dl (6.3-8.2); Triglycerides 56 mg/dl (30-150); VLDL Cholesterol 11 mg/dL (0-40)
[2022-06-15 15:04] LABS: Direct LDL Cholesterol 91.93 mg/dL (100-129)
[2022-06-15 15:09] LABS: Free T4 (Free Thyroxine) 1.06 ng/dl (0.78-2.19)
[2022-06-15 15:23] LABS: Thyroid Stimulating Hormone 1.47 uIU/mL (0.465-4.68)
[2022-06-17 09:55] LABS: Thyroid Peroxidase Antibodies 76 IU/mL (0-34)
[2022-07-02 20:38] LABS: Triiodothyronine (T3) Reverse 7.9
== END ==
LOC: LAB 13:34
PROVIDERS: PCP Nurse Practitioner Family; Visit Provider Nurse Practitioner
DX: R06.00 Dyspnea, unspecified (principal); R07.9 Chest pain, unspecified; R55 Syncope and collapse; R42 Dizziness and giddiness; R00.0 Tachycardia, unspecified; R00.2 Palpitations; R94.31 Abnormal electrocardiogram [ECG] [EKG]
CPT/HCPCS: 36415; 80048; 80061; 80076; 83735; 84439; 84443; 84482; 84702; 85025; 86376; 93270

== ENCOUNTER 2022-07-28 11:55 | Emergency (ER) | payer OTHER, SELFPAY ==
[2022-07-28 11:55] VITALS: BP 120/70; PULSE 91; RESP 16; TEMP 36.8; O2SAT 99; BMI 15.7
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
[2022-07-28 13:19] VITALS: BP 120/70; PULSE 91; RESP 16; TEMP 36.8; O2SAT 99
== END 2022-07-28 13:20 | disposition home or self-care (01) ==
PROVIDERS: Emergency Provider Nurse Practitioner Family; PCP Family Medicine
DX: L02.415 Cutaneous abscess of right lower limb (principal); F41.9 Anxiety disorder, unspecified; F32.A Depression, unspecified; Z87.891 Personal history of nicotine dependence
CPT/HCPCS: 99212; 99214; G0463

== ENCOUNTER → 2022-08-23 12:46 | Outpatient (CLI) | payer OTHER, SELFPAY ==
--- NOTE | 2022-08-23 12:46 | US_ITS ---
FINAL REPORT TECHNIQUE: Real-time grayscale and color ultrasound of the thyroid was performed. CLINICAL HISTORY: thyroiditis COMPARISON: None FINDINGS: The thyroid gland measures 4.6 cm on the right and 4.7 cm on the left. The isthmus measures 3 mm. The thyroid has a mildly heterogeneous echotexture of uncertain etiology which may represent thyroiditis. No evidence of nodule or mass. IMPRESSION: Mildly heterogeneous echotexture may represent thyroiditis. Reviewed, Interpreted and Dictated by Caleb Obrien III, MD Transcribed by Niki Ramírez Authenticated and [facility]
== END ==
PROVIDERS: PCP Family Medicine; Visit Provider Nurse Practitioner
DX: E06.9 Thyroiditis, unspecified (principal)
CPT/HCPCS: 76536

== ENCOUNTER 2022-11-14 09:33 | Emergency (ER) | payer OTHER, SELFPAY ==
[2022-11-14 09:35] VITALS: BP 114/73; PULSE 84; RESP 16; TEMP 36.6; O2SAT 100; BMI 14.8
[2022-11-14 09:57] LABS: Coronavirus 19, PCR Not Detected (NotDetected); Influenza A, PCR Not Detected (NotDetected); Influenza B, PCR Not Detected (NotDetected)
[2022-11-14 10:00] VITALS: BP 118/76; PULSE 88; RESP 20; O2SAT 99
--- NOTE | 2022-11-14 10:05 | PC.NURSE ---
DR CORDOVA AT BEDSIDE
--- NOTE | 2022-11-14 10:06 | PC.NURSE ---
Dr. Stone at [facility] for pt eval
[2022-11-14 10:08] LABS: Strep Scrn Group A (Rapid) Negative (Negative)
--- NOTE | 2022-11-14 10:09 | HMH.EDGENADL ---
Discharge Plan Disposition Patient Disposition: Home, Self-Care Prescriptions Prescriptions: No Action bisoprolol fumarate 5 mg tablet 5 mg PO DAILY Qty: 30 2RF methylprednisolone 4 mg tablets,dose pack See Rx Instructions PO PER PKG DIR Qty: 21 0RF Rx Instructions: PO PER PKG DIR hydroxyzine HCl 25 mg tablet 25 mg PO TID PRN (Reason: itching) Qty: 20 0RF Nexplanon 68 mg implant 68 mg SUBDERMAL ONCE Referrals Follow up/Referrals: Whitney Hanson MD [Primary Care Provider] - See instructions Activity Restrictions/Add. Instructions Additional Instructions/Restrictions: Your COVID flu and strep test were all negative please take Tylenol ibuprofen as needed for your symptoms and return with any worsening symptoms. Clinical Impressions Clinical Impression: Viral syndrome Discharge ED Provider: [facility] Adult HPI General Chief complaint: Upper Respiratory Infection Stated complaint: sore throat chen nausea cough body ache chills Time Seen by Provider: 11/14/22 10:05 Mode of Arrival: Ambulatory Source of Information: Patient Limitations: No Limitations Description of Symptoms (Recalled from ER Triage Doc. by RN): PT C/O SORE THROAT, BILATERAL EAR PAIN, BODY ACHES, FEVER AND A MOUTH BLISTER. SYMPTOMS STARTED ON TUESDAY. REPORTS BF HAD STREP. PT REQUESTS COVID AND STREP SWAB History of Present Illness HPI narrative: 27-year-old female here with chief complaint of I think I have COVID or strep. She states that she has recently been around somebody with strep throat has a sore throat has some ear aches and fever and chills and body aches at home. States her Tmax was 99.4. She took some Tylenol and ibuprofen yesterday evening to 1 today. Denies any shortness of breath denies any significant medical problems. Related Data Home Medications Medication Instructions Recorded Confirmed etonogestrel 68 mg subdermal 68 mg subdermal ONCE control 11/13/18 09/13/22 implant (Nexplanon) Previous Rx's Medication Instructions Recorded bisoprolol fumarate 5 mg tablet 5 mg PO DAILY #30 tabs 07/05/22 hydroxyzine HCl 25 mg tablet 25 mg PO TID PRN itching #20 tabs 09/13/22 methylprednisolone 4 mg tablets in See Rx Instructions PO PER PKG DIR 09/13/22 a dose pack #21 tabs Allergies Allergy/AdvReac Type Severity Reaction Status Date / Time codeine [CODEINE] Allergy Unknown Verified 09/13/22 11:52 fentanyl Allergy Vomiting Verified 09/13/22 11:52 [facility] Disclaimer: The information contained in this section may have been updated after the patient was seen, as this information can be updated by other users. Medical History Abnormal electrocardiogram [ECG] [EKG] Abnormal Holter monitor finding Anxiety Breakthrough bleeding on Nexplanon Chest pain Depression Dizziness Dyspnea Palpitations Routine gynecological examination Seizures Sinus tachycardia SVT (supraventricular tachycardia) Syncope Thyroiditis Underweight Surgical History History of tonsillectomy Family History Other Cancer Diabetes Hypertension Social History Smoking Status: Former smoker second hand exposure: Yes alcohol intake: current substance use type: marijuana current occupational status: employed Travel in the last 8 weeks: None household members: family housing: house number of children: 0 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
[2022-11-14 10:31] VITALS: BP 105/64; PULSE 88; RESP 18; O2SAT 100
[2022-11-14 11:10] VITALS: BP 96/51; PULSE 68; RESP 17; TEMP 36.6; O2SAT 98
== END 2022-11-14 11:10 | disposition home or self-care (01) ==
PROVIDERS: Emergency Provider Student in an Organized Health Care Education/Training Program; PCP Family Medicine
DX: J02.9 Acute pharyngitis, unspecified (principal); H92.03 Otalgia, bilateral; R50.9 Fever, unspecified; B34.9 Viral infection, unspecified; F32.A Depression, unspecified; F41.9 Anxiety disorder, unspecified; I47.1 Supraventricular tachycardia; Z87.891 Personal history of nicotine dependence
CPT/HCPCS: 87430; 87636; 99283

== ENCOUNTER 2023-03-25 08:53 | Outpatient (CLI) | payer SELFPAY | END 2023-03-25 23:59 | PROVIDERS: PCP Family Medicine; Visit Provider Nurse Practitioner | DX: Z11.1 Encounter for screening for respiratory tuberculosis (principal); Z02.1 Encounter for pre-employment examination | CPT/HCPCS: 86580 ==

== ENCOUNTER 2023-04-12 15:08 | Outpatient (CLI) | payer BC, SELFPAY ==
--- NOTE | 2023-04-12 15:15 | MR_ITS ---
FINAL REPORT CLINICAL HISTORY: SYNCOPE OF COLLAPSE COMPARISON: 06/14/2022 FINDINGS: Multi planar MR imaging was obtained through the brain without contrast. The midline structures appear intact. There is no evidence of Chiari malformation. On T2 and flair axial images the brain parenchyma is homogeneous. On diffusion-weighted images there is no evidence of restricted diffusion. There is soft tissue thickening in the right maxillary sinus. The seventh and eighth nerve root complexes are intact. IMPRESSION: Essentially unremarkable nonenhanced brain MRI. Soft tissue thickening in the right maxillary sinus. Reviewed, Interpreted and Dictated by Abdi Connell MD Transcribed by Nelida Higgins Authenticated and . [facility]
== END 2023-04-12 23:59 ==
LOC: RAD 15:10
PROVIDERS: PCP Family Medicine; Visit Provider Nurse Practitioner
DX: R55 Syncope and collapse (principal)
CPT/HCPCS: 70551

== ENCOUNTER 2024-09-19 10:32 | Emergency (ER) | payer SELFPAY ==
[2024-09-19] VITALS (8 sets, daily range): BP systolic 110–133; BP diastolic 72–89; PULSE 66–77; RESP 16; TEMP 36.9–37.2; O2SAT 99–100; BMI 15.3
--- OUTSIDE RECORDS SUMMARY | 2024-09-19 11:39 | XMS_ITS | Clinical Summary ---
Author Organization [facility] Address [address] [place] [id number] Care Team Providers Care Sales Representatives Name Role Phone Unavailable Primary Care Provider Unavailabl e Source Comments [facility] is fully rolled out with thefollowing exceptions:General Clinical Research [facility] Social History Tobacco Use Types Packs/Day Years Used Date Smoking Tobacco: Never Assessed Comments Unknown Sex and Gender Information Value Date Recorded Sex Assigned at Not on file Legal Sex Female 4:11 PM EST Gender Identity Not on file Sexual Orientation Not on file Plan of Treatment Health Maintenance Due Date Last Done Comments MMR IMMUNIZATION (1 of 1 - S tandard series) 1998 DTAP/Tdap/Td IMMUNIZATION (1 - Tdap) 2004 VARICELLA IMMUNIZATION (1 of 2 - 13+ 2-dose series) 2010 HPV IMMUNIZATION (1 - 3-dose series) 2012 HEPATITIS B IMMUNIZATION (1 of 3 - 19+ 3-dose series) 2016 COVID-19 Vaccine (2023-2 5 season) 2023 AMB SEASONAL FLU VACCINE (#1) 10/22/2024 HIB IMMUNIZATION Aged Out No longer e ligible based on patient's age to complete this topic IPV IMMUNIZATION Aged Out No longer e ligible based on patient's age to complete this topic MCV4 IMMUNIZATION Aged Out No longer eligible based on patient's age to complete this topic MENINGOCOCCAL B VACCINE Aged Out No l onger eligible based on patient's age to complete this topic PNEUMOCOCCAL IMMUNIZATION Aged Out No longer eligible based on patient's age to complete this topic Respiratory Syncytial Virus (RSV) <20mo Aged Out No longer eligible b ased on patient's age to complete this topic
--- OUTSIDE RECORDS SUMMARY | 2024-09-19 11:39 | XMS_ITS | Clinical Summary ---
Author Organization [facility] Address [address] [place] [address] Phone Care Team Providers Care Pattern Mechanic Name Role Phone Unavailable Primary Care Provider Unavailabl e Allergies Active Allergy Reactions Criticality Noted Date Comments Codeine Rash,Other (See Comments) Low 07/08/2019 Fentanyl Other (See Comments) Low 07/19/2019 Medications No known medications Active Problems Problem Noted Date Diagnosed Date Vasovagal syncope 10/27/2022 Chest wall pain 10/27/2022 Social History Tobacco Use Types Packs/Day Years Used Date Smoking Tobacco: Former Cigarettes Passive Smoke Exposure: Past Smokeless Tobacco: Former Tobacco Cessation:Counseling Given: Not Answered Comments Unknown Sex and Gender Information Value Date Recorded Sex Assigned at Not on file Legal Sex Female 2:55 PM EDT Gender Identity Not on file Sexual Orientation Not on file Obstetrics History Last Filed Vital Signs Vital Sign Reading Time Taken Comments Blood Pressure 110/70 10/27/2022 1:48 PM EDT Pulse - - Temperature - - Respiratory Rate - - Oxygen Saturation 97% 10/27/2022 1:48 PM EDT Inhaled Oxygen Concentration - - Weight 46.3 kg (102 lb) 10/27/2022 1:48 PM EDT Height 167.6 cm (5' 6 ) 10/27/2022 1:48 PM EDT Body Mass Index 16.46 10/27/2022 1:48 PM EDT Plan of Treatment Health Maintenance Due Date Last Done Comments Annual Wellness Exam 2000 DTaP/TDaP/Td (4 - Tdap) 2008 09/14/19 03, 01/13/2000, 06/29/1999 HPV (1 - 3-dose series) 2012 Hepatitis B Vaccine (1 of 3 - 19+ 3-dose series) 2016 Cervical Cancer Screening 2018 Pap Smear 2018 COVID-19 Vaccine (2023-2 5 season) 2023 Influenza Vaccine (#1) 2024 Meningococcal B Vaccine Aged Out No l onger eligible based on patient's age to complete this topic Pneumococcal Vaccine 0-49 Aged Out No longer eligible based on patient's age to complete this topic Insurance [address] [place] [id number] [employer] [address] [place] [id number] [employer]
--- OUTSIDE RECORDS SUMMARY | 2024-09-19 11:39 | XMS_ITS | Clinical Summary ---
Author Organization [facility] Address [address] [place] [address] Care Team Providers Care Nuclear Weapons Custodian Name Role Phone Monty Hanson MD Primary Care Provider [phone] Allergies Active Allergy Reactions Criticality Noted Date Comments Codeine Rash,Unknown - Patie nt states they do not know rxn details Low 07/08/2019 Fentanyl Unknown - Patient st ates they do not know rxn details,Other - please document in the comment field,Vomiting Low 07/19/2019 Medications etonogestrel-eluti ng contraceptive device 68 MG implant 1 each by Implant route 1 (one) time. Active Active Problems Problem Noted Date Diagnosed Date Anxiety 03/15/2023 Breakthrough bleeding on Nexplanon 03/15/2023 Marijuana use 03/15/2023 Presence of subcutaneous contraceptive implant 0 03/15/2023 Rash 03/15/2023 Underweight 03/15/2023 Chest wall pain 10/27/2022 Vasovagal syncope 10/27/2022 Family History Medical History Relation Name Comments Breast cancer Maternal Grandmother Cervical cancer Maternal Grandmother Breast cancer Paternal Grandmother Cervical cancer Sister Relation Name Status Comments Maternal Grandmother Paternal Grandmother Sister Social History Tobacco Use Types Packs/Day Years Used Date Smoking Tobacco: Every Day Smokeless Tobacco: Never Tobacco Cessation:Ready to Q uit: Not Asked; Counseling Given: Not Answered Alcohol Use Standard Drinks/Week Comments Yes 1 (1 standard drink = 0.6 oz pur e alcohol) PHQ-2 Answer Date Recorded Patient Health Questionnaire-2 Score 0 10/20/2023 Comments No Sex and Gender Information Value Date Recorded Sex Assigned at Not on file Legal Sex Female 7:19 PM EDT Gender Identity Not on file Sexual Orientation Not on file Last Filed Vital Signs Vital Sign Reading Time Taken Comments Blood Pressure 122/77 10/20/2023 3:24 PM EDT Pulse 71 10/20/2023 3:24 PM EDT Temperature 37.3 C (99.2 F) 10/20/2023 3:24 PM EDT Respiratory Rate 14 10/20/2023 3:24 PM EDT Oxygen Saturation 98% 10/20/2023 3:24 PM EDT Inhaled Oxygen Concentration - - Weight 48.2 kg (106 lb 4.2 oz) 10/20/2023 3:24 P M EDT Height 167.6 cm (5' 6 ) 10/20/2023 3:24 PM EDT Body Mass Index 17.15 10/20/2023 3:24 PM EDT Plan of Treatment Health Maintenance Due Date Last Done Comments [facility]-HIV Screening 1997 [facility]-Hepatitis C Screening 1997 [facility]-Infant/Child/Adol SDOH Screenings 1997 [facility]-Varicella Vaccines (2 of 2 - 2-dose childhood series) 2001 01/13/2000 [facility]-IPV Vaccines (3 of 3 - 4-dose series) 03/16/2003 09/13/2002, 06/29/1999 [facility]-DTaP,Tdap,and Td Vaccines (4 - Tdap) 2008 09/13/2002, 01/13/2000, 06/29/1999 HPV Vaccines (1 - 3-dose series) 2012 [facility]- SDOH Screenings 11/04/2015 [facility]-Adult SDOH Screenings 11/04/2015 [facility]-Hepatitis B Vaccines (1 of 3 - 19+ 3-dose series) 2016 [facility]-Pneumococcal Vaccine: Pediatrics (0 to 5 Years) and At-Risk Patients (6 to 49 Years) (1 of 2 - PCV) 2016 UBF-YDODF-30 Vaccine (1 - 2023- season) 2023 [facility]-Depression Screening 10/19/2024 10/20/2023 [facility]-Influenza Vaccine (#1) 2024 [facility]-Pap Smear 03/15/2026 03/15/2023 [facility]-Zoster Vaccines (1 of 2) 11/04/2047 01/13/2000 [facility]-HIB Vaccines Completed 06/29/1999 [facility]-Hepatitis A Vaccines Aged Out No longer eligible based on patient's age to complete this topic [facility]-Rotavirus Vaccines Aged Out No lo nger eligible based on patient's age to complete this topic Procedures Procedure Name Priority Date/Time Associated Diagnosis Comments PAP TEST - CYTOLOGY Routine 03/15/2023 3:52 PM EST Encounter for gynecological examination (general) (routine) without abnormal findings from Last 3 Months or Most Recently Relevant to Health Maintenance Results * Pap Test (03/15/2023 3:52 PM EST) Case Report Cytology Case: [id number] Authorizing Provider: Stephanie Noble APRN, DNP Collected: 03/15/2023 1552 Ordering Location: Obstetrics & Gynecology Received: 03/16/2023 1124 First Screen: Yumiko Salamanca Specimen: ThinPrep Pap Test, Liquid-Based Cervical/Vaginal 03/22/2023 12:42 PM EST [facility] Interpretation NEGATIVE FOR INTRAEPITHELIAL LESION OR MALIGNANCY 03/22/2023 12:42 PM EST [facility] at 1242 EST Specimen Adequacy Satisfactory for evaluation; endocervical/crouch sformation zone component present. Slide scanned and imaged by ThinPrep Imaging System with manual review of all selected gilbert. 03/22/2023 12:42 PM EST [facility] Cervical cytology is a screening test primarily for squamous cancers and precursors and has associated false negative and positive results. New technologies such as liquid based sampling may decrease but will not eliminate all false negative results. Regular screening and follow-up of unexplained clinical signs and symptoms are recommended to minimize false negative results. Please see the ASCCP website (www.asccp.org)fo r followup recommendations. If HPV testing was requested, correlation with the results is suggested (please call Microbiology at [phone] for results). 03/22/2023 12:42 PM EST [facility] Menstrual Status Not Applicable 02/23 12:42 PM EST [facility] Contraceptive History Implanon 03/22/2023 12:42 PM EST [facility] Screening Type Routine Screen 2023 12:42 PM EST [facility] High Risk? No 03/22/2023 12:42 PM EST [facility] HPV Testing Requested? No HPV Testing Requested 03/22/2023 12:42 PM EST [facility] Previous Cancer History No 03/22/2023 12:42 PM EST [facility] Clinical Information Z01.419 - Encounter for gynecological examination (general) (routine) without abnormal findings [ICD-10-CM] 03/22/2023 12:42 PM EST [facility] Swab Vaginal and cervical cytologic material / Unknown Non-blood Collection / Unknown 03/15/2023 3:52 PM EST 03/16/2023 11:24 AM EST us Stephanie Noble APRN, DNP LAB CYTOLOGY ORDERABLES Final Result [facility] [address] [place] [id number] from Last 3 Months or Most Recently Relevant to Health Maintenance Care Teams Nuclear Weapons Custodian Relationship Specialty Start Date End Date Monty Hanson MD [address] [place] [address] #1 #1 [place] [id number] PCP - General 07/04/20
--- NOTE | 2024-09-19 11:40 | ED_ITS ---
<Statement entered by Dalila Buchanan DO - 09/19/24 15:04> I was consulted by the KARMEN, and we discussed the complexity of the problems being addressed. I approved the treatment and management plan for this patient's care in the emergency department, thus performing a substantive portion of the medical decision making. Dalila Buchanan DO Discharge Plan Disposition Patient Disposition: Home, Self-Care Condition: Good Prescriptions Prescriptions: New nitrofurantoin monohyd/m-cryst [Macrobid] 100 mg capsule 100 mg PO BID 5 Days Qty: 10 0RF Rx Instructions: must administer with a meal/food ondansetron 4 mg tablet,disintegrating 4 mg PO Q6H PRN (Reason: nausea and vomiting) Qty: 10 0RF No Action Nexplanon 68 mg implant 68 mg SUBDERMAL ONCE Referrals Follow up/Referrals: Provider,Referral, MD [Primary Care Provider, Medical] - See instructions Activity Restrictions/Add. Instructions Additional Instructions/Restrictions: Please return to the emergency department with any worsening signs or symptoms, please follow-up with your PCP in the upcoming days/weeks, please continue adequate fluid intake, advance your diet as tolerated, use antinausea medicine as needed and take medication as prescribed with food. Clinical Impressions Clinical Impression: UTI (urinary tract infection) Instructions Patient Instructions: DI for Urinary Tract Infection (UTI) Print Language Print Language: Romanian Discharge ED Provider: Dalila Buchanan General Adult HPI <HIEU Davis - Last Filed: 09/19/24 14:32> General Chief complaint: Urogenital-Female Stated complaint: Dehydration Time Seen by Provider: 09/19/24 11:35 Mode of Arrival: Ambulatory Source of Information: Patient Limitations: No Limitations History of Present Illness HPI narrative: 28-year-old female presents the emergency department at the [facility] facility for decreased urine output, since 09/17/2024, poor p.o. intake, nausea vomiting, abdominal cramping, constipation since Tuesday, was sent with concerns for dehydration, denies any diarrhea, denies any other urinary type symptomatology, denies any fever chills chest pain shortness of breath. Patient has no other real relevant past medical history, takes no other medications at home, does have implantable contraceptive (Nexplanon), initial triage vitals are unremarkable, patient denies any tobacco alcohol or drug use, patient states that she was out in the heat , on 09/15/2024, and she thinks this may be attributing to it. Patient states she typically has a appetite , and is not intentionally trying to lose weight or diet. Onset (ago): day(s) Related Data Home Medications ?Medication ?Instructions ?Recorded ?Confirmed etonogestrel 68 mg subdermal 68 mg subdermal ONCE Cara h control 11/13/18 09/19/24 implant (Nexplanon) Previous Rx's ?Medication ?Instructions ?Recorded nitrofurantoin 100 mg PO BID 5 days #10 cap s 09/19/24 monohydrate/macrocrystals 100 mg capsule (Macrobid) ondansetron 4 mg disintegrating 4 mg PO Q6H PRN nausea and 09/19/24 tablet vomiting #10 tabs Allergies Allergy/AdvReac Type Severity Reaction Status Date / Time codeine (CODEINE) Allergy Unknown Verified 09/19/24 10:11 fentanyl Allergy Vomiting Verified 09/19/24 10:11 [facility] <HIEU Davis - Last Filed: 09/19/24 14:32> [facility] Disclaimer: The information contained in this section may have been updated after the patient was seen, as this information can be updated by other users. Medical History Nausea & vomiting Thyroiditis Abnormal Holter monitor finding SVT (supraventricular tachycardia) Dizziness Dyspnea Chest pain Sinus tachycardia Abnormal electrocardiogram [ECG] [EKG] Palpitations Syncope Routine gynecological examination Seizures Depression Anxiety Underweight Breakthrough bleeding on Nexplanon Surgical History History of tonsillectomy Family History Other Cancer Diabetes Hypertension Social History Smoking Status: Never smoker second hand exposure: Yes alcohol intake: current alcohol intake frequency: holidays/special occasions only substance use type: marijuana current occupational status: employed Travel in the last 8 weeks?: None household members: family housing: house number of children: 0 current occupation: early childhood lead teacher current occupational exposures/hazards: No Have you lived/traveled outside US in past 30 days?: No Contact w/someone who lives/traveled outside US past 30 days?: No Exposure to someone with infectious disease in past 14 days?: No Do you have a fever (greater than 100.4 F or 38 C)?: No Have you tested positive for COVID-19?: No Exposed to someone with COVID-19 in past 14 days?: No Do you have a sore throat?: No Do you have a cough?: No Do you have any weakness?: No Do you have any diarrhea?: No Are you experiencing any unusual bleeding?: No Do you have any muscle aches/pain?: No Do you have any abdominal pain?: No Are you experiencing loss of taste or smell?: No Other Medical History Have you received the Flu Vaccine for this season: No Have you received the Pneumonia Vaccine: No <HIEU Davis - Last Filed: 09/19/24 14:32> ROS Obtained: Yes All systems reviewed & no additional complaints except as documented Physical Exam <HIEU Davis - Last Filed: 09/19/24 14:32> General General appearance: alert and in no apparent distress Comment: Thin appearing female Head Head exam: atraumatic and normocephalic Eye Eye exam: Present PERRL and EOMI ENT ENT exam: Present mucous membranes moist Neck Neck exam: Present normal inspection Chest Chest inspection: Present normal inspection and symmetric chest wall rise Respiratory Respiratory exam: Present normal lung sounds bilaterally; Absent respiratory distress Cardiovascular Cardiovascular exam: Present regular rate and normal rhythm Abdominal Exam Abdominal exam: Present soft; Absent tenderness, guarding, rebound or rigidity Extremities Exam Extremities exam: Present normal inspection Neurological Exam Neurological exam: Present alert and oriented X3 Psychiatric Psychiatric exam: Present normal affect Skin Skin exam: Present warm and dry Medical Decision Making <HIEU Davis - Last Filed: 09/19/24 14:32> Medical Records Medical records reviewed: Yes I reviewed the patient's medical records. Screening: Per USPSTF and CDC recommendations, given the prevalence of disease in our region, it is our hospital?s policy to screen for HIV and viral Hepatitis for all patients aged 18 and over and those with ongoing risk factors. Donovan Inquiry Pt receiving controlled substance: No Donovan was queried for this patient: No Vital Signs: 09/19/24 11:43 09/19/24 11:53 09/19/24 11:55 Temperature 98.5 F Temperature Source Oral Pulse Rate 68 66 Pulse Rate [Right] 77 Respiratory Rate 16 16 Blood Pressure 112/84 112/84 Blood Pressure [Right Arm] 133/89 Blood Pressure Mean [Right Arm] 103 02 Sat by Pulse Oximetry 100 100 100 Oxygen Delivery Method Room Air Room Air 09/19/24 12:00 09/19/24 12:30 09/19/24 13:00 Temperature Temperature Source Pulse Rate 69 68 72 Pulse Rate [Right] Respiratory Rate Blood Pressure 125/84 110/72 120/74 Blood Pressure [Right Arm] Blood Pressure Mean [Right Arm] 02 Sat by Pulse Oximetry 100 100 99 Oxygen Delivery Method 09/19/24 13:21 Temperature Temperature Source Pulse Rate 67 Pulse Rate [Right] Respiratory Rate 16 Blood Pressure 120/74 Blood Pressure [Right Arm] Blood Pressure Mean [Right Arm] 02 Sat by Pulse Oximetry 99 Oxygen Delivery Method Room Air Lab Data Lab results reviewed: Yes I reviewed the patient's lab results. Lab Results 09/19/24 11:32: WBC 10.3, RBC 4.46, Hgb 13.7, Hct 39.9, MCV 89.5, MCH 30.7, MCHC 34.3, RDW 12.3, Plt Count 242, MPV 10.2, Neut % (Auto) 65.2, Lymph % (Auto) 29.6, [place] % (Auto) 4.4, Eos % (Auto) 0.1, Baso % (Auto) 0.5, Neut # (Auto) 6.7, Lymph # (Auto) 3.0, [place] # (Auto) 0.5, Eos # (Auto) 0.0, Baso # (Auto) 0.1, Sodium 138, Potassium 3.5, Chloride 104, Carbon Dioxide 24, Anion Gap 13.5, BUN 12, Creatinine 0.60, Estimated Creat Clear 100, Estimated GFR 121, Est GFR ( Amer) 146, Glucose 89, Calcium 10.0, Total Bilirubin 0.7, AST 37 H, ALT 29, Alkaline Phosphatase 73, Total Protein 8.8 H, Albumin 4.7, Globulin 4.1 H, Albumin/Globulin Ratio 1.1, Lipase 46, HCV Ab EMMA w/Rflx PCR Qn Negative, HIV Ag/Ab Combo Qual Negative 09/19/24 13:28: Urine Color Yellow, Urine Appearance Clear, Urine pH 6.0, Ur Specific [place] 1.025, Urine Protein Trace, Urine Glucose (UA) Negative, Urine Ketones 3+, Urine Blood 2+ A, Urine Nitrate Positive A, Urine Bilirubin Negative, Urine Urobilinogen 1.0, Ur Leukocyte Esterase 1+ A, Urine HCG, Qual Negative 09/19/24 11:32 09/19/24 11:32 Orders (Tests/Meds): ED MEDICATIONS Discontinued Medications Generic Name Dose Route Start Last Admin Trade Name Michael PRN Reason Stop Dose Admin Lactated Ringer's 1,000 mls @ 999 mls/hr 09/19/24 11:45 09/19/24 11:53 Lactated Ringer's 1000 Ml Bag IV 09/19/24 12:45 999 mls/hr .Q1H1M ONE Administration Ondansetron HCl 4 mg 09/19/24 11:45 09/19/24 11:53 Ondansetron 4mg/2ml Vial IV 09/19/24 11:46 4 mg ONCE ONE Administration ORDERS Category Date Time Status Complete Blood Count Auto Diff Stat Lab 09/19/24 11:32 Completed Comprehensive Metabolic Panel Stat Lab 09/19/24 11:32 Completed HIV Combo Stat Lab 09/19/24 11:32 Completed Hepatitis C Ab Qual. W/ RFX Stat Lab 09/19/24 11:32 Completed Lipase Stat Lab 09/19/24 11:32 Completed Urinalysis and Microscopic Stat Lab 09/19/24 13:28 Results Urine , HCG Qual. Stat Lab 09/19/24 13:28 Completed Urine Culture Stat Micro 09/19/24 13:28 Received Medical Decision Narrative: 28-year-old female presents the emergency department with poor p.o. intake nausea vomiting, abdominal cramping, constipation, decreased urine output for 2 days differential diagnosis include but not limited to cardiac arrhythmia, electrolyte disturbance, gastritis, colitis, ileitis, acute UTI, anorexia nervosa, bulimia, acute pyelonephritis, urinary retention among others. I discussed the patient's case with the attending physician Dr. Buchanan Will obtain basic laboratory studies, lipase level, UA, urine hCG qualitative, EKG, BladderScan the patient, will give 1 L LR IV, and obtain 4 mg IV Zofran. CMP is unremarkable Per nursing staff, bladder scan is unremarkable, no urine in the urinary bladder. CBC unremarkable Urine is notable 2+ hematuria, positive nitrites, 1+ leukocyte Estrace. 3+ ketonuria. hCG qualitative negative Reexamination of the patient at the bedside at approximately 2:25 PM, patient states that her symptomatology is improved she was able to vital with a urine sample, and finished 1 L of fluids, tolerating p.o. intake. Will prescribe the patient 4 mg p.o. Zofran as needed for nausea and vomiting, I do believe some of the patient symptomatology could be explained by acute UTI, patient remained hemodynamically stable throughout time in the emergency department, no other red flag signs or symptoms. Prescribed Macrobid 100 mg p.o. twice daily for 5 days. Will call patient if need to change antibiotic therapy accordingly due to urine culture. Patient voiced understanding and agreed with current treatment plan/discharge plan, strict ED return precaution were given, recommended advance diet as tolerated and recommend good p.o. intake with fluids and solids. <Dalila Buchanan, DO - Last Filed: 09/19/24 12:04> Vital Signs: 09/19/24 11:43 09/19/24 11:53 09/19/24 11:55 Temperature 98.5 F Temperature Source Oral Pulse Rate 68 66 Pulse Rate [Right] 77 Respiratory Rate 16 16 Blood Pressure 112/84 112/84 Blood Pressure [Right Arm] 133/89 Blood Pressure Mean [Right Arm] 103 02 Sat by Pulse Oximetry 100 100 100 Oxygen Delivery Method Room Air Room Air 09/19/24 12:00 09/19/24 12:30 09/19/24 13:00 Temperature Temperature Source Pulse Rate 69 68 72 Pulse Rate [Right] Respiratory Rate Blood Pressure 125/84 110/72 120/74 Blood Pressure [Right Arm] Blood Pressure Mean [Right Arm] 02 Sat by Pulse Oximetry 100 100 99 Oxygen Delivery Method 09/19/24 13:21 Temperature Temperature Source Pulse Rate 67 Pulse Rate [Right] Respiratory Rate 16 Blood Pressure 120/74 Blood Pressure [Right Arm] Blood Pressure Mean [Right Arm] 02 Sat by Pulse Oximetry 99 Oxygen Delivery Method Room Air Lab Data Lab Results 09/19/24 11:32: WBC 10.3, RBC 4.46, Hgb 13.7, Hct 39.9, MCV 89.5, MCH 30.7, MCHC 34.3, RDW 12.3, Plt Count 242, MPV 10.2, Neut % (Auto) 65.2, Lymph % (Auto) 29.6, [place] % (Auto) 4.4, Eos % (Auto) 0.1, Baso % (Auto) 0.5, Neut # (Auto) 6.7, Lymph # (Auto) 3.0, [place] # (Auto) 0.5, Eos # (Auto) 0.0, Baso # (Auto) 0.1, Sodium 138, Potassium 3.5, Chloride 104, Carbon Dioxide 24, Anion Gap 13.5, BUN 12, Creatinine 0.60, Estimated Creat Clear 100, Estimated GFR 121, Est GFR ( Amer) 146, Glucose 89, Calcium 10.0, Total Bilirubin 0.7, AST 37 H, ALT 29, Alkaline Phosphatase 73, Total Protein 8.8 H, Albumin 4.7, Globulin 4.1 H, Albumin/Globulin Ratio 1.1, Lipase 46, HCV Ab EMMA w/Rflx PCR Qn Negative, HIV Ag/Ab Combo Qual Negative 09/19/24 13:28: Urine Color Yellow, Urine Appearance Clear, Urine pH 6.0, Ur Specific [place] 1.025, Urine Protein Trace, Urine Glucose (UA) Negative, Urine Ketones 3+, Urine Blood 2+ A, Urine Nitrate Positive A, Urine Bilirubin Negative, Urine Urobilinogen 1.0, Ur Leukocyte Esterase 1+ A, Urine HCG, Qual Negative Orders (Tests/Meds): ED MEDICATIONS Discontinued Medications Generic Name Dose Route Start Last Admin Trade Name Freq PRN Reason Stop Dose Admin Lactated Ringer's 1,000 mls @ 999 mls/hr 09/19/24 11:45 09/19/24 11:53 Lactated Ringer's 1000 Ml Bag IV 09/19/24 12:45 999 mls/hr .Q1H1M ONE Administration Ondansetron HCl 4 mg 09/19/24 11:45 09/19/24 11:53 Ondansetron 4mg/2ml Vial IV 09/19/24 11:46 4 mg ONCE ONE Administration ORDERS Category Date Time Status Complete Blood Count Auto Diff Stat Lab 09/19/24 11:32 Completed Comprehensive Metabolic Panel Stat Lab 09/19/24 11:32 Completed HIV Combo Stat Lab 09/19/24 11:32 Completed Hepatitis C Ab Qual. W/ RFX Stat Lab 09/19/24 11:32 Completed Lipase Stat Lab 09/19/24 11:32 Completed Urinalysis and Microscopic Stat Lab 09/19/24 13:28 Results Urine , HCG Qual. Stat Lab 09/19/24 13:28 Completed Urine Culture Stat Micro 09/19/24 13:28 Received ECG Data Tracing #1: I reviewed this ECG and interpreted as documented below: Sinus bradycardia at a ventricular rate of [address] changes concerning for STEMI. Normal intervals ECG initial impression date: 09/19/24 ECG initial impression time: 11:59 Critical Care <HIEU Davis - Last Filed: 09/19/24 14:32> Critical Care Time Critical Care Time: No
[2024-09-19 11:53] LABS: Albumin Level 4.7 g/dl (3.5-5.0); Chloride 104 mmol/L (98-107); Potassium 3.5 mmoL/L (3.5-5.1); Sodium 138 mmol/L (136-145)
[2024-09-19] MEDS: ONDANSETRON 4MG/2ML VIAL 4 MG IV (11:53)
[2024-09-19] MEDS: LACTATED RINGERS 1000ML 1,000 ML 999 ML IV (11:53)
--- NOTE | 2024-09-19 11:55 | ECG_ITS ---
APPROVED REPORT Exam: Resting ECG HR:59 bpm ECG Measurements Heart Rate 59 AXES ND 119 P 65 QRSd 93 QRS 86 QT 381 T 55 QTc 381 Conclusion SINUS BRADYCARDIA WITH SINUS ARRHYTHMIA WITH SHORT ND INTERVAL POSSIBLE RIGHT VENTRICULAR CONDUCTION DELAY [RSR (QR) IN V1/V2] No STEMI Electronically signed by : JENNIFER DEJESUS, 09/19/2024 15:25:59
[2024-09-19 11:56] LABS: Alanine Aminotransferase 29 U/L (12-78); Albumin/Globulin Ratio 1.1 (1.1-1.8); Alkaline Phosphatase 73 U/L (38-126); Anion Gap 13.5 mEq/L (5-15); Aspartate Amino Transferase 37 U/L (14-36); Bilirubin,Total 0.7 mg/dl (0.2-1.3); Blood Urea Nitrogen 12 mg/dl (7-17); Calcium 10.0 mg/dl (8.4-10.2); Carbon Dioxide 24 mmol/L (22.0-30.0); Creatinine Clearance Estimated 100 mL/min (50-200); Creatinine,Serum 0.60 mg/dl (0.52-1.04); Estimated Glomerular Filt Rate 121 ml/min (>60); GFR (African American) 146 ML/MIN (>60); Globulin 4.1 g/dL (1.3-3.2); Glucose 89 mg/dl (74-100); Lipase 46 U/L (23-300); Total Protein,Serum 8.8 g/dl (6.3-8.2)
--- NOTE | 2024-09-19 12:21 | PC.NURSE ---
Rounded on patient, no needs voiced at this time.
[2024-09-19 13:23] LABS: Hematocrit 39.9 % (37.0-47.0); Hemoglobin 13.7 g/dL (12.2-16.2); Immature Granulocytes % 0.2 %; Mean Corpuscular HGB Conc 34.3 g/dL (31.8-35.4); Mean Corpuscular Hemoglobin 30.7 pg (27.0-31.2); Mean Corpuscular Volume 89.5 fl (81-99); Nucleated Red Blood Cells % 0 %; Platelet Count 242 K/mm3 (142-424); Red Blood Count 4.46 M/mm3 (4.20-5.40); Red Cell Distribution Width-SD 40.3 fL; White Blood Count 10.3 K/mm3 (4.8-10.8)
--- NOTE | 2024-09-19 13:30 | PC.NURSE ---
PT ambulated to bathroom to attempt to urinate.
--- NOTE | 2024-09-19 13:34 | PC.NURSE ---
PT was able to leave a urine specimen
[2024-09-19 13:38] LABS: Microscopic, Urine URINE MICROSCOPIC (MICROSCOPIC)
[2024-09-19 13:46] LABS: Hepatitis C Ab Qual. W/ RFX NEGATIVE (Negative)
[2024-09-19 13:48] LABS: Bilirubin,Urine Negative (Negative); Color,Urine YELLOW (Yellow); Glucose,Urine (UA) Negative (Negative); Ketones,Urine 3+ (Negative); Leukocyte Esterase,Urine 1+ (Negative); PH,Urine 6.0 (5.0-8.5); Protein,Urine TRACE (Negative); Specific Gravity, Urine 1.025 (1.005-1.030); Urobilinogen,Urine 1.0 EU/dl (0.2)
[2024-09-19 13:49] LABS: Urine Pregnancy, HCG Qual. Negative (Negative)
[2024-09-19 21:56] LABS: Bacteria,Urine 4+ /lpf
--- NOTE | 2024-09-20 08:19 | PC.NURSE ---
Urine culture results reviewed by Dr. Brooke. No new orders received.
--- NOTE | 2024-09-22 18:21 | PC.NURSE ---
Pts final urine culture results discussed with . No changed needed in treatment.
== END 2024-09-19 14:39 | disposition home or self-care (01) ==
PROVIDERS: Physician Assistant; Emergency Provider Emergency Medicine
DX: N39.0 Urinary tract infection, site not specified (principal); F41.9 Anxiety disorder, unspecified
CPT/HCPCS: 51798; 80053; 81001; 81025; 83690; 85025; 86803; 87086; 87088; 87186; 87389; 93005; 96361; 96374; 99284; J2405; J7120

== ENCOUNTER 2024-09-27 15:21 | Emergency (ER) | payer SELFPAY ==
[2024-09-27] VITALS (13 sets, daily range): BP systolic 110–127; BP diastolic 72–89; PULSE 63–74; RESP 14–25; TEMP 36.6–37.1; O2SAT 98–100; BMI 15.3
--- NOTE | 2024-09-27 15:25 | ECG_ITS ---
APPROVED REPORT Exam: Resting ECG HR:67 bpm ECG Measurements Heart Rate 67 AXES NV 116 P 47 QRSd 88 QRS 88 QT 391 T 46 QTc 406 Conclusion Normal sinus rhythm at [address] or T wave changes concerning for ischemia Electronically signed by : Shae Cochran, 09/28/2024 01:02:20
--- OUTSIDE RECORDS SUMMARY | 2024-09-27 15:25 | XMS_ITS | Clinical Summary ---
Author Organization [facility] Address [address] [place] [address] Phone Care Team Providers Care Personalized Living Manager Nurse Name Role Phone Unavailable Primary Care Provider [...] complete this topic Insurance [id number], [place] [id number] [employer] [address], [place] [id number] [employer]
--- OUTSIDE RECORDS SUMMARY | 2024-09-27 15:25 | XMS_ITS | Clinical Summary ---
Author Organization Healthcare Address [address] [place] [address] Care Team Providers Care Hrbp Name Role Phone Monty Hanson MD Primary Care Provider [phone] Allergies Active Allergy Reactions Criticality Noted Date [...] Years) (1 of 2 - PCV) 2016 [id number] Vaccine (1 - 2023- season) 2023 UKY-Depression [...] 3:52 PM EST) Case Report Cytology Case: [id number] Authorizing Provider: Stephanie Noble APRN, DNP Collected: 03/15/2023 1552 Ordering Location: Obstetrics & Gynecology Received: 03/16/2023 1124 First Screen: Yumiko Salamanca Specimen: ThinPrep Pap Test, Liquid-Based Cervical/Vaginal 03/22/2023 12:42 PM EST [facility] Interpretation NEGATIVE FOR INTRAEPITHELIAL LESION OR MALIGNANCY 03/22/2023 12:42 PM EST [facility] at 1242 EST Specimen Adequacy Satisfactory for evaluation; endocervical/crouch sformation zone component present. Slide scanned and imaged by ThinPrep Imaging System with manual review of all selected gilbert. 03/22/2023 12:42 PM EST [facility] Cervical cytology is a screening test [...] results is suggested (please call Microbiology at [phone] for results). 03/22/2023 12:42 PM EST [facility] Menstrual Status Not Applicable 02/23 12:42 PM EST [facility] Contraceptive History Implanon 03/22/2023 12:42 PM EST [facility] Screening Type Routine Screen 2023 12:42 PM EST [facility] High Risk? No 03/22/2023 12:42 PM EST [facility] HPV Testing Requested? No HPV Testing Requested 03/22/2023 12:42 PM EST [facility] Previous Cancer History No 03/22/2023 12:42 PM EST [facility] Clinical Information Z01.419 - Encounter for gynecological examination (general) (routine) without abnormal findings [ICD-10-CM] 03/22/2023 12:42 PM EST [facility] Swab Vaginal and cervical cytologic material / Unknown Non-blood Collection / Unknown 03/15/2023 3:52 PM EST 03/16/2023 11:24 AM EST us Stephanie Noble APRN, DNP LAB CYTOLOGY ORDERABLES Final Result [facility] [address] [place] [id number] from Last 3 Months or Most Recently Relevant to Health Maintenance Care Teams Hrbp Relationship Specialty Start Date End Date Monty Hanson MD [address] [place] [address] [address]1 [address] [place] [id number] PCP - General 07/04/20
--- OUTSIDE RECORDS SUMMARY | 2024-09-27 15:25 | XMS_ITS | Clinical Summary ---
Author Organization [facility] Address [address] [place] [id number] Care Team Providers Care Client Sales And Service Officer Name Role Phone Unavailable Primary Care Provider Unavailabl e Source Comments [facility] is fully rolled out with thefollowing exceptions:General Clinical Research [facility] Social History Tobacco Use Types Packs/Day Years [...]
--- NOTE | 2024-09-27 15:28 | PC.NURSE ---
Patietns FSBS is 96
--- NOTE | 2024-09-27 15:32 | XR_ITS ---
PROCEDURE INFORMATION: Exam: XR Chest Exam date and time: 09/27/2024 4:06 PM Age: 28 years old Clinical indication: Shortness of breath; Additional info: Soa/chest x-ray TECHNIQUE: Imaging protocol: Radiologic exam of the chest. Views: 1 view. COMPARISON: No relevant prior studies available. FINDINGS: Airway: Airways are patent. Lungs: Right lung calcified granuloma is benign. Lungs are clear. Pleural spaces: No pleural effusions or pneumothorax. Heart/Mediastinum: No cardiomegaly. Bones/joints: No acute skeletal abnormality or aggressive osseous lesion. Other findings: Umbilical piercing. IMPRESSION: No acute findings.
--- NOTE | 2024-09-27 15:40 | ED_ITS ---
<Statement entered by Shae Cochran DO - 09/27/24 23:59> I was consulted by the KARMEN, and we discussed the complexity of problems being addressed. I approve the treatment and management plan for this patient's care in the emergency department, thus performing a substantial portion of the medical decision making. Shae Cochran DO Discharge Plan Disposition Patient Disposition: Home, Self-Care Condition: Good Prescriptions Prescriptions: No Action Nexplanon 68 mg implant 68 mg SUBDERMAL ONCE nitrofurantoin monohyd/m-cryst [Macrobid] 100 mg capsule 100 mg PO BID 5 Days Qty: 10 0RF Rx Instructions: must administer with a meal/food ondansetron 4 mg tablet,disintegrating 4 mg PO Q6H PRN (Reason: nausea and vomiting) Qty: 10 0RF Referrals Follow up/Referrals: Ida Rudolph MD [Staff Physician, Neurology] - See instructions Surya Valladares MD [Staff Physician, Cardiology] - See instructions Activity Restrictions/Add. Instructions Additional Instructions/Restrictions: Please follow-up with PCP, road patcher and neurologist in the upcoming days/week, continue take all medication as prescribed, recommend anti- inflammatory medications, ibuprofen Tylenol and others as needed for symptomatic relief. Please return to the emerged part with any worsening signs or symptoms. Clinical Impressions Clinical Impression: Atypical chest pain, Pre-syncope Instructions Patient Instructions: DI for Atypical Chest Pain Print Language Print Language: Croatian Discharge ED Provider: Shae Cochran General Chief Complaint: Chest Pain Stated Complaint: CP Time Seen by Provider: 09/27/24 15:24 Mode of Arrival: Ambulatory Source of Information: Patient and Relative Description of Symptoms (Recalled from ER Triage Doc. by RN): Pt presents for evaluation of chest pain since tuesday09-25-24. Pt states it started while she was in [place]. At the time it started she felt like her arms and legs were numb and tingling. Pt states her hands were also clinched up. States pain is a 10/10 that is sharp and left sided in nature. History of Present Illness HPI narrative: 28 year old female presents to the emergency department with complaints of waxing and waning chest pain. She states that her chest pain started 2 days ago when she was talking to her aunt on the porch. She states that she suddenly felt like she was about to pass out and she felt like her chest was brusied and had episodes of sharp chest pain that is intermittent, and left-sided, She states that she felt diaphoretic and had numbness and tingling in her arms. Then last night she states that she felt jerking of her legs. She states she had an episode of vomiting yesterday and an episode of vomiting this morning. She also states episodes of blurry vision at times and feeling drunk . No dizziness, no lightheadedness currently, no abdominal pain, no constipation no diarrhea, no hematuria no melena no medic easier hematemesis, describes her current chest pain a 7 out of 10, describes it more as bruised , states that her maximal chest pain was sharp and rated 10 out of 10. Patient was seen in the ED previosly for a UTI, in which she was treated with antibiotics that she recently had finished. Patient has no significant PMH. Patient currently vapes, but denies any alcohol or drug use. Initial triage vitals are unremarkable. Of note, upon chart review patient has been seen and worked up by neurology for seizures, unsure/unclear if patient has true diagnosis of seizures, looks like she has been on anticonvulsant in the past, and self discontinued the medication, appears to have had MRI brain performed and 2023, which was unremarkable. Patient had EEG slated fortunately data deficient/unsure if patient ever received these additional diagnostic testing for potential seizure disorder. Please note that above description of symptoms, in this electronic medical record under categorization of recalled from ER triage doctor by RN are reflective of an initial nursing assessment, however, is not reflective of my full history and physical exam that was personally taken and clarified. Consequentially, this preceding description of symptoms, which may include the patient's categorized chief complaint in the EMR, do not reflect my personal clinical impression, and the ultimate description of history of present illness and patient stated complaints should be deferred to this section of the note. Unless stated otherwise or congruent with this section of the note, additional signs, symptoms, or incongruence should be interpreted as inaccurate with my clinical impression. complaint: chest pain Related Data Home Medications ?Medication ?Instructions ?Recorded ?Confirmed etonogestrel 68 mg subdermal 68 mg subdermal ONCE Cara h control 11/13/18 09/19/24 implant (Nexplanon) Previous Rx's ?Medication ?Instructions ?Recorded nitrofurantoin 100 mg PO BID 5 days #10 cap s 09/19/24 monohydrate/macrocrystals 100 mg capsule (Macrobid) ondansetron 4 mg disintegrating 4 mg PO Q6H PRN nausea and 09/19/24 tablet vomiting #10 tabs Allergies Allergy/AdvReac Type Severity Reaction Status Date / Time codeine (CODEINE) Allergy Unknown Verified 09/19/24 10:11 fentanyl Allergy Vomiting Verified 09/19/24 10:11 [facility] Disclaimer: The information contained in this section may have been updated after the patient was seen, as this information can be updated by other users. Medical History Nausea & vomiting Thyroiditis Abnormal Holter monitor finding SVT (supraventricular tachycardia) Dizziness Dyspnea Chest pain Sinus tachycardia Abnormal electrocardiogram [ECG] [EKG] Palpitations Syncope Routine gynecological examination Seizures Depression Anxiety Underweight Breakthrough bleeding on Nexplanon Surgical History History of tonsillectomy Family History Other Cancer Diabetes Hypertension Social History Smoking Status: Current every day smoker tobacco type: cigarettes packs per day: 1 second hand exposure: Yes alcohol intake: current alcohol intake frequency: holidays/special occasions only substance use type: marijuana current occupational status: employed Travel in the last 8 weeks?: None household members: family housing: house number of children: 0 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 current occupational exposures/hazards: No Have you lived/traveled outside US in past 30 days?: No Contact w/someone who lives/traveled outside US past 30 days?: No Exposure to someone with infectious disease in past 14 days?: No Do you have a fever (greater than 100.4 F or 38 C)?: No Have you tested positive for COVID-19?: No Exposed to someone with COVID-19 in past 14 days?: No Do you have a sore throat?: No Do you have a cough?: No Do you have any weakness?: No Do you have any diarrhea?: No Are you experiencing any unusual bleeding?: No Do you have any muscle aches/pain?: No Do you have any abdominal pain?: No Are you experiencing loss of taste or smell?: No Other Medical History Have you received the Flu Vaccine for this season: No Have you received the Pneumonia Vaccine: No ROS Obtained: Yes All systems reviewed & no additional complaints except as documented Physical Exam General General appearance: alert and in no apparent distress Head Head exam: atraumatic and normocephalic Eye Eye exam: Present PERRL and EOMI ENT ENT exam: Present mucous membranes moist Neck Neck exam: Present normal inspection Chest Chest inspection: Present normal inspection, symmetric chest wall rise, tenderness and other (Mild left-sided chest wall tenderness palpation) Respiratory Respiratory exam: Present normal lung sounds bilaterally; Absent respiratory distress Cardiovascular Cardiovascular exam: Present regular rate and normal rhythm Abdominal Exam Abdominal exam: Present soft; Absent tenderness Extremities Exam Extremities exam: Present normal inspection Neurological Exam Neurological exam: Present alert and oriented X3 Psychiatric Psychiatric exam: Present normal affect Skin Skin exam: Present warm and dry HEART Score HEART Score HEART Score assessment performed?: Yes HEART Score: 1 Critical Care Critical Care Time Critical Care Time: No Medical Decision Making Medical Records Medical records reviewed: Yes I reviewed the patient's medical records. Donovan Inquiry Pt receiving controlled substance: Yes Donovan was queried for this patient: No Reason not queried -: Emergent pt cond-no time Risks and benefits of using a controlled substance: were discussed with pt by me Vital Signs Vital Signs: 09/27/24 15:24 09/27/24 15:27 09/27/24 15:45 Temperature 98 F Temperature Source Oral Pulse Rate 72 67 Pulse Rate [Orthostatic Lying] Pulse Rate [Orthostatic Sitting] Pulse Rate [Orthostatic Standing] Pulse Rate [Right] 70 Respiratory Rate 18 14 22 Blood Pressure 126/79 Blood Pressure [Orthostatic Lying] Blood Pressure [Orthostatic Sitting] Blood Pressure [Orthostatic Standing] Blood Pressure [Right Arm] 126/79 Blood Pressure Mean Blood Pressure Mean [Right Arm] 94 Blood Pressure Source [Right Arm] Automatic Cuff Blood Pressure Position [Right Arm] Sitting 02 Sat by Pulse Oximetry 100 100 98 Oxygen Delivery Method Room Air 09/27/24 16:00 09/27/24 16:30 09/27/24 17:00 Temperature Temperature Source Pulse Rate 66 66 64 Pulse Rate [Orthostatic Lying] Pulse Rate [Orthostatic Sitting] Pulse Rate [Orthostatic Standing] Pulse Rate [Right] Respiratory Rate 21 16 19 Blood Pressure 114/75 127/89 110/72 Blood Pressure [Orthostatic Lying] Blood Pressure [Orthostatic Sitting] Blood Pressure [Orthostatic Standing] Blood Pressure [Right Arm] Blood Pressure Mean 84 Blood Pressure Mean [Right Arm] Blood Pressure Source [Right Arm] Blood Pressure Position [Right Arm] 02 Sat by Pulse Oximetry 100 100 100 Oxygen Delivery Method Room Air 09/27/24 17:22 09/27/24 17:23 09/27/24 17:24 Temperature Temperature Source Pulse Rate 67 69 72 Pulse Rate [Orthostatic Lying] Pulse Rate [Orthostatic Sitting] Pulse Rate [Orthostatic Standing] Pulse Rate [Right] Respiratory Rate 17 15 25 H Blood Pressure 111/73 122/76 126/81 Blood Pressure [Orthostatic Lying] Blood Pressure [Orthostatic Sitting] Blood Pressure [Orthostatic Standing] Blood Pressure [Right Arm] Blood Pressure Mean Blood Pressure Mean [Right Arm] Blood Pressure Source [Right Arm] Blood Pressure Position [Right Arm] 02 Sat by Pulse Oximetry 100 100 100 Oxygen Delivery Method 09/27/24 17:25 09/27/24 17:30 09/27/24 17:45 Temperature Temperature Source Pulse Rate 65 70 Pulse Rate [Orthostatic Lying] 63 Pulse Rate [Orthostatic Sitting] 65 Pulse Rate [Orthostatic Standing] 70 Pulse Rate [Right] Respiratory Rate 17 18 Blood Pressure 117/76 Blood Pressure [Orthostatic Lying] 111/73 Blood Pressure [Orthostatic Sitting] 122/76 Blood Pressure [Orthostatic Standing] 126/81 Blood Pressure [Right Arm] Blood Pressure Mean Blood Pressure Mean [Right Arm] Blood Pressure Source [Right Arm] Blood Pressure Position [Right Arm] 02 Sat by Pulse Oximetry 100 100 Oxygen Delivery Method Room Air Lab Data Lab results reviewed: Yes I reviewed the patient's lab results. Labs: Lab Results 09/27/24 15:39: WBC 6.9, RBC 4.17 L, Hgb 12.7, Hct 37.8, MCV 90.6, MCH 30.5, MCHC 33.6, RDW 12.5, Plt Count 207, MPV 10.2, Neut % (Auto) 54.1, Lymph % (Auto) 37.8, Erath % (Auto) 6.2, Eos % (Auto) 1.2, Baso % (Auto) 0.4, Neut # (Auto) 3.7, Lymph # (Auto) 2.6, Erath # (Auto) 0.4, Eos # (Auto) 0.1, Baso # (Auto) 0.0, D- Dimer 0.45, Sodium 138, Potassium 3.2 L, Chloride 103, Carbon Dioxide 28, Anion Gap 10.2, BUN 7, Creatinine 0.60, Estimated Creat Clear 100, Estimated GFR 121, Est GFR ( Amer) 146, Glucose 94, Calcium 9.3, Total Bilirubin 0.3, AST 26, ALT 22, Alkaline Phosphatase 57, Troponin I < 0.01, NT-Pro-B Natriuret Pep 29.7, Total Protein 7.2, Albumin 4.7, Globulin 2.5, Albumin/Globulin Ratio 1.9 H , Lipase 64, Serum HCG, Qual Negative 09/27/24 15:39 09/27/24 15:39 Response Orders (Tests/Meds): ED MEDICATIONS Generic Name Dose Route Start Last Admin Trade Name Freq PRN Reason Stop Dose Admin Lactated Ringer's 1,000 mls @ 999 mls/hr 09/27/24 17:16 09/27/24 17:23 Lactated Ringer's 1000 Ml Bag IV 09/27/24 18:16 999 mls/hr .Q1H1M ONE Administration Discontinued Medications Generic Name Dose Route Start Last Admin Trade Name Freq PRN Reason Stop Dose Admin Acetaminophen 1,000 mg 09/27/24 17:15 09/27/24 17:22 Acetaminophen 1,000mg/100ml Vial IV 09/27/24 17:16 1,000 mg ONCE ONE Administration Morphine Sulfate 2 mg 09/27/24 16:00 09/27/24 16:06 Morphine 2mg/Ml Syringe IV 09/27/24 16:01 2 mg ONCE ONE Administration Ondansetron HCl 4 mg 09/27/24 15:53 09/27/24 15:57 Ondansetron 4mg/2ml Vial IV 09/27/24 15:54 4 mg ONCE ONE Administration Potassium Chloride 60 meq 09/27/24 16:22 09/27/24 16:26 Potassium Chloride 20meq Tab PO 09/27/24 16:23 60 meq ONCE ONE Administration ORDERS Category Date Time Status XR chest portable Stat Exams 09/27/24 15:32 Completed Complete Blood Count Auto Diff Stat Lab 09/27/24 15:39 Completed Comprehensive Metabolic Panel Stat Lab 09/27/24 15:39 Completed D-Dimer Stat Lab 09/27/24 15:39 Completed HCG Qualitative, Serum Stat Lab 09/27/24 15:39 Completed Lipase Stat Lab 09/27/24 15:39 Completed NT Pro Brain Natriuretic Pep. Stat Lab 09/27/24 15:39 Completed Troponin I Q3H Lab 09/27/24 18:45 Ordered Troponin I Q3H Lab 09/27/24 21:45 Ordered Troponin I Stat Lab 09/27/24 15:39 Completed MDM Narrative Medical Decision Narrative: 28-year-old female presents emerged part with left-sided chest wall pain, lightheadedness, several episodes of nausea and vomiting, differential diagnosis include but not limited to, costochondritis, pneumonia, PE, ACS, vasovagal syncope, cardiogenic syncope, electrolyte disturbance, cardiac arrhythmia, anxiety reaction, panic attack among others. I discussed this patient's case with the attending physician Dr. Cochran Will obtain basic laboratory studies, EKG, chest x-ray, D-dimer, hCG qualitative, lipase, proBNP, troponin, will give 4 mg IV Zofran for nausea, and 2 mg of morphine for pain. hCG qualitative is negative. D-dimer is 0.45, thus ruling out VTE/PE Mild hypokalemia is noted on CMP at 3.2, thus will replace with 60 mEq p.o. potassium ,initial troponin is less than 0.01, proBNP within normal limits, lipase in normal limits. CBC unremarkable I reviewed the patient's chest x-ray along the corresponding radiologic report, no acute findings. I had a long discussion with the patient and family at the bedside, patient's mother who is at the bedside now provide some additional history at approximately 5:10 PM, it appears patient has been worked up for seizure disorder, unclear, thought to be more of a postural syncope versus orthostatic hypotension because of the patient's symptoms as has patient has multiple of these episodes a week, never had EEG performed/did not follow-up, but has seen neurology in the past this was confirmed via chart review and patient family bedside. Negative MRI brain x 2 in the last 5 years. Makes neurological workup reassuring. I do not believe these are actual seizures, describing more of a presyncopal type episode, thus will obtain orthostatic vital signs, will give 1 L of IV NS, and will give patient 1000 mg IV Tylenol for her ongoing headache at this time. Orthostatics are negative. Reexamination of the patient at the bedside approximate 6:05 PM, patient is resting comfortably in the bed, has not had any of these episodes that she previously describes, currently chest pain-free, headache is improved, patient is remained hemodynamically stable at her time in the emergency department. Patient to be discharged home to self-care, I would recommend following up with PCP, neurologist and road patcher in the upcoming days/weeks, patient was given strict ED return precautions. Patient voiced understanding and agreement Contreet plan/discharge plan.
[2024-09-27 15:47] LABS: Hematocrit 37.8 % (37.0-47.0); Hemoglobin 12.7 g/dL (12.2-16.2); Immature Granulocytes % 0.3 %; Mean Corpuscular HGB Conc 33.6 g/dL (31.8-35.4); Mean Corpuscular Hemoglobin 30.5 pg (27.0-31.2); Mean Corpuscular Volume 90.6 fl (81-99); Nucleated Red Blood Cells % 0 %; Platelet Count 207 K/mm3 (142-424); Red Blood Count 4.17 M/mm3 (4.20-5.40); Red Cell Distribution Width-SD 41.4 fL; White Blood Count 6.9 K/mm3 (4.8-10.8)
[2024-09-27] MEDS: ONDANSETRON 4MG/2ML VIAL 4 MG IV (15:57)
[2024-09-27 15:58] LABS: HCG Qualitative, Serum Negative (Negative)
[2024-09-27 15:59] LABS: Alanine Aminotransferase 22 U/L (12-78); Albumin Level 4.7 g/dl (3.5-5.0); Albumin/Globulin Ratio 1.9 (1.1-1.8); Alkaline Phosphatase 57 U/L (38-126); Anion Gap 10.2 mEq/L (5-15); Aspartate Amino Transferase 26 U/L (14-36); Bilirubin,Total 0.3 mg/dl (0.2-1.3); Blood Urea Nitrogen 7 mg/dl (7-17); Calcium 9.3 mg/dl (8.4-10.2); Carbon Dioxide 28 mmol/L (22.0-30.0); Chloride 103 mmol/L (98-107); Creatinine Clearance Estimated 100 mL/min (50-200); Creatinine,Serum 0.60 mg/dl (0.52-1.04); Estimated Glomerular Filt Rate 121 ml/min (>60); GFR (African American) 146 ML/MIN (>60); Globulin 2.5 g/dL (1.3-3.2); Glucose 94 mg/dl (74-100); Lipase 64 U/L (23-300); Potassium 3.2 mmoL/L (3.5-5.1); Sodium 138 mmol/L (136-145); Total Protein,Serum 7.2 g/dl (6.3-8.2)
[2024-09-27 16:03] LABS: D-Dimer 0.45 ug/mL (0.0-0.5)
[2024-09-27] MEDS: MORPHINE 2MG/ML SYRINGE 2 MG IV (16:06)
[2024-09-27 16:11] LABS: NT Pro Brain Natriuretic Pep. 29.7 pg/mL (0-125)
[2024-09-27 16:14] LABS: Troponin I < 0.01 ng/ml (0.00-0.034)
[2024-09-27] MEDS: POTASSIUM CHLORIDE 20MEQ TAB 60 MEQ PO (16:26)
[2024-09-27] MEDS: ACETAMINOPHEN 1,000MG/100ML VIAL 1000 MG IV (17:22)
[2024-09-27] MEDS: LACTATED RINGERS 1000ML 1,000 ML 999 ML IV (17:23)
== END 2024-09-27 18:22 | disposition home or self-care (01) ==
PROVIDERS: Physician Assistant; Emergency Provider Student in an Organized Health Care Education/Training Program; PCP Family Medicine
DX: R07.89 Other chest pain (principal); R51.9 Headache, unspecified; E87.6 Hypokalemia; R55 Syncope and collapse; F17.210 Nicotine dependence, cigarettes, uncomplicated
CPT/HCPCS: 71045; 80053; 83690; 83880; 84484; 84703; 85025; 85378; 93005; 96361; 96374; 96375; 99285; J0131; J2270; J2405; J7120

== ENCOUNTER 2024-10-10 09:04 | Outpatient (CLI) | payer OTHER, SELFPAY ==
--- OUTSIDE RECORDS SUMMARY | 2024-10-10 09:07 | XMS_ITS | Clinical Summary ---
Author Organization [facility] Address [address] [place] [address] Care Team Providers Care Mobile Application Architect Name Role Phone Unavailable Primary Care Provider Unavailabl e Source Comments [facility] is fully rolled out with thefollowing exceptions:General Clinical Research [facility] Social History Tobacco Use Types Packs/Day [...] season) 2023 AMB SEASONAL FLU VACCINE (#1) 12/22/2024 HIB IMMUNIZATION Aged Out No longer e [...]
--- OUTSIDE RECORDS SUMMARY | 2024-10-10 09:07 | XMS_ITS | Clinical Summary ---
Author Organization [facility] Address [address] [facility] [address] Care Team Providers Care Service Vehicle Operator Name Role Phone Monty Hanson MD Primary Care Provider [phone] Allergies Active Allergy Reactions Criticality Noted Date [...] [facility]-HIV Screening 1997 [facility]-Hepatitis C Screening 1997 [facility]-/Child/Adol SDOH Screenings 1997 [facility]-Varicella Vaccines (2 of [...] Years) (1 of 2 - PCV) 2016 EKG-[id number]-35 Vaccine (1 - 2023- season) 2023 [facility]-Depression [...] 3:52 PM EST) Case Report Cytology Case: [id number] Authorizing Provider: Stephanie Noble APRN, DNP Collected: 03/15/2023 1552 Ordering Location: Obstetrics & Gynecology Received: 03/16/2023 1124 First Screen: Yumiko Salamanca Specimen: ThinPrep Pap Test, Liquid-Based Cervical/Vaginal 03/22/2023 12:42 PM EST [facility] Interpretation NEGATIVE FOR INTRAEPITHELIAL LESION OR MALIGNANCY 03/22/2023 12:42 PM EST [facility] at 1242 EST Specimen Adequacy Satisfactory for evaluation; endocervical/crouch sformation zone component present. Slide scanned and imaged by ThinPrep Imaging System with manual review of all selected gilbert. 03/22/2023 12:42 PM EST [facility] Cervical cytology is a screening test [...] results is suggested (please call Microbiology at [phone] for results). 03/22/2023 12:42 PM EST [facility] Menstrual Status Not Applicable 02/23 12:42 PM EST [facility] Contraceptive History Implanon 03/22/2023 12:42 PM EST [facility] Screening Type Routine Screen 2023 12:42 PM EST [facility] High Risk? No 03/22/2023 12:42 PM EST [facility] HPV Testing Requested? No HPV Testing Requested 03/22/2023 12:42 PM EST [facility] Previous Cancer History No 03/22/2023 12:42 PM EST [facility] Clinical Information Z01.419 - Encounter for gynecological examination (general) (routine) without abnormal findings [ICD-10-CM] 03/22/2023 12:42 PM EST [facility] Swab Vaginal and cervical cytologic material / Unknown Non-blood Collection / Unknown 03/15/2023 3:52 PM EST 03/16/2023 11:24 AM EST us Stephanie Noble RN LAB CYTOLOGY ORDERABLES Final Result Performing Organization Address City/State/[facility] Co de Phone Number [facility] [address] [place] [id number] from Last 3 Months or Most Recently Relevant to Health Maintenance Care Teams Service Vehicle Operator Relationship Specialty Start Date End Date Monty Hanson MD [address] [place] [address] [address]1 [address] [place] [id number] PCP - General 07/04/20
--- OUTSIDE RECORDS SUMMARY | 2024-10-10 09:07 | XMS_ITS | Clinical Summary ---
Author Organization [facility] Address [address] [place] [address] Phone Care Team Providers Care Lot Boss Name Role Phone Unavailable Primary Care Provider [...] complete this topic Insurance [address] [place], [place] [id number] [employer] [address] [place], [place] [id number] [employer]
[2024-10-10 10:37] LABS: Chloride 103 mmol/L (98-107); Potassium 4.0 mmoL/L (3.5-5.1); Sodium 139 mmol/L (136-145)
[2024-10-10 10:40] LABS: Anion Gap 14.0 mEq/L (5-15); Blood Urea Nitrogen 12 mg/dl (7-17); Calcium 9.6 mg/dl (8.4-10.2); Carbon Dioxide 26 mmol/L (22.0-30.0); Creatinine,Serum 0.70 mg/dl (0.52-1.04); Estimated Glomerular Filt Rate 101 ml/min (>60); GFR (African American) 122 ML/MIN (>60); Glucose 90 mg/dl (74-100)
[2024-10-10 10:54] LABS: Triiodothryronine (T3) Uptake 37 % (23.5-40.5)
[2024-10-10 10:55] LABS: Free Thyroxine Index 3.7 ug/dL (5.93-13.13); T4 (Thyroxine) 10.0 ug/dl (5.53-11.0)
[2024-10-10 11:09] LABS: Thyroid Stimulating Hormone 1.02 uIU/mL (0.465-4.68)
== END 2024-10-10 23:59 | disposition home or self-care (01) ==
PROVIDERS: PCP Family Medicine; Visit Provider Nurse Practitioner
DX: I47.19 Other supraventricular tachycardia (principal); I49.1 Atrial premature depolarization; R55 Syncope and collapse
CPT/HCPCS: 36415; 80048; 84436; 84443; 84479; 93270

== ENCOUNTER 2024-10-23 11:52 | Outpatient (CLI) | payer OTHER, SELFPAY ==
--- OUTSIDE RECORDS SUMMARY | 2024-10-23 12:00 | XMS_ITS | Clinical Summary ---
Author Organization [facility] Address [address] [place] [address] Phone Care Team Providers Care Chicken Stuffer Name Role Phone Unavailable Primary Care Provider [...] Smear 2018 COVID-19 Vaccine (2023-2 5 season) 2024 Influenza Vaccine (#1) 2024 Meningococcal B Vaccine Aged Out No l onger eligible based on patient's age to complete this topic Pneumococcal Vaccine 0-49 Aged Out No longer eligible based on patient's age to complete this topic Insurance [address] [place], [place] [id number] [employer] [address] [place], [place] [id number] [employer]
--- OUTSIDE RECORDS SUMMARY | 2024-10-23 12:00 | XMS_ITS | Clinical Summary ---
Author Organization [facility] Address [address] [place] [address] Care Team Providers Care Calciner Operator Name Role Phone Unavailable Primary Care Provider Unavailabl e Source Comments [facility] is fully rolled out with thefollowing exceptions:General Clinical Research [facility] Social History Tobacco Use Types [...]
--- OUTSIDE RECORDS SUMMARY | 2024-10-23 12:00 | XMS_ITS | Clinical Summary ---
Author Organization [facility] Address [address] [place] [address] Care Team Providers Care Pond Worker Name Role Phone Monty Hanson MD Primary Care Provider [phone] Allergies Active Allergy Reactions Criticality Noted Date [...] of 3 - 19+ 3-dose series) 2016 UKI-NISAY-70 Vaccine (1 - 2023- season) 2023 [facility]-Depression Screening 10/19/2024 10/20/2023 [facility]-Influenza Vaccine (#1) 2024 [facility]-Pap Smear 03/15/2026 03/15/2023 [facility]-Zoster Vaccines (1 of 2) 11/04/2047 01/13/2000 [facility]-HIB Vaccines Completed 06/29/1999 [facility]-Hepatitis A Vaccines Aged Out No longer eligible based on patient's age to complete this topic [facility]-Pneumococcal Vaccine: Pediatrics (0 to 5 Years) and At-Risk Patients (6 to 49 Years) Aged Out No longer eligible b ased [...] 3:52 PM EST) Case Report Cytology Case: [id number] Authorizing Provider: Stephanie Noble APRN, DNP Collected: 03/15/2023 1552 Ordering Location: Obstetrics & Gynecology Received: 03/16/2023 1124 First Screen: Yumiko Salamanca Specimen: ThinPrep Pap Test, Liquid-Based Cervical/Vaginal 03/22/2023 12:42 PM EST [facility] Interpretation NEGATIVE FOR INTRAEPITHELIAL LESION OR MALIGNANCY 03/22/2023 12:42 PM EST [facility] at 1242 EST Specimen Adequacy Satisfactory for evaluation; endocervical/crouch sformation zone component present. Slide scanned and imaged by ThinPrep Imaging System with manual review of all selected gilbert. 03/22/2023 12:42 PM EST [facility] Cervical cytology is a screening [...] results is suggested (please call Microbiology at [phone] for results). 03/22/2023 12:42 PM EST [facility] Menstrual Status Not Applicable 02/23 12:42 PM EST [facility] Contraceptive History Implanon 03/22/2023 12:42 PM EST [facility] Screening Type Routine Screen 2023 12:42 PM EST [facility] High Risk? No 03/22/2023 12:42 PM EST [facility] HPV Testing Requested? No HPV Testing Requested 03/22/2023 12:42 PM EST [facility] Previous Cancer History No 03/22/2023 12:42 PM EST [facility] Clinical Information Z01.419 - Encounter for gynecological examination (general) (routine) without abnormal findings [ICD-10-CM] 03/22/2023 12:42 PM EST [facility] Swab Vaginal and cervical cytologic material / Unknown Non-blood Collection / Unknown 03/15/2023 3:52 PM EST 03/16/2023 11:24 AM EST us Stephanie Noble RN LAB CYTOLOGY ORDERABLES Final Result [facility] [address] [place] [address] from Last 3 Months or Most Recently Relevant to Health Maintenance Care Teams Pond Worker Relationship Specialty Start Date End Date Monty Hanson MD [address] [place] [address] #1 #1 [place] [id number] PCP - General 07/04/20
[2024-10-23 12:29] VITALS: BMI 15.3
[2024-10-23 12:40] VITALS: BP 104/67; PULSE 63; RESP 18; TEMP 36.1; O2SAT 100
[2024-10-23 12:40] LABS: Urine Pregnancy, HCG Qual. Negative (Negative)
--- NOTE | 2024-10-23 13:00 | CT_ITS ---
APPROVED REPORT [facility]: CLINICAL INDICATION Chest Pain TECHNIQUE Image Acquisition: A 128 slice MDCT scanner ([employer] View) was used for data acquisition. A noncontrast coronary calcium scan was performed. A CT attenuation threshold of 130 Hounsfield units (HU) was used for the detection of calcium in contiguous voxels of 1 sq mm in area to be counted as individual lesions. Bolus tracking in the ascending aorta with a threshold of 180 HU was performed. Immediately afterwards, ECG synchronized cardiac CT was then performed from the cardiac base to apex using retrospective gating with ECG tube current modulation. A total of 85 mL of Isovue 370 mg/mL contrast medium was administered at 5 mL/sec followed by a saline flush using a biphasic injection protocol. A tube voltage of 120 KVp was used. The average heart rate at the time of acquisition was 61bpm and regular. Image Reconstruction Transaxial images were reconstructed at 0.67 mm slide thickness. Data was reviewed interactively on an advanced workstation capable of 2 and 3-dimensional displays in all conventional reconstruction formats, including multiplanar reformations, maximum intensity projections, curved multiplanar reformations, and volume rendered reconstructions. When applicable, selected routine images describing the relevant coronary anatomy and pathology were saved and sent to PACS. Complications None Technical Quality Overall image quality was good. Coronary artery opacification was adequate. Total DLP (Dose-Length Product) is 1945.8 mGy-cm. The reported value represents the total of one or more individual components during the CT acquisition of this date and at this time, and as such, the same value may appear in more than one CT report depending on the interpreting/reporting physicians. COMPARISON None FINDINGS CT Coronary Calcium Scoring LMA (Left Main Artery) = 0 LAD (Left Anterior Descending) = 0 LCX (Left Coronary Circumflex) = 0 RCA (Right Coronary Artery) = 0 Total Calcium Score = 0 using the AJ-130 method. The interpretation of the calcium heart score is based on the following continuum*: 0 = no calcified plaque detected (risk of coronary artery disease is very low ??? less than 5%) 1-10 = calcium detected in extremely minimal levels (risk of coronary diseases is still low ??? less than 10%) 11-100 = mild levels of plaque detected with certainty (mild or minimal narrowing of heart arteries is likely) 101-400 = definite,at least moderate levels of plaque detected (relatively high risk of a heart attack within 3-5 years) >401-999 = extensive levels of plaque detected (high risk of heart attack, high levels of vascular disease are present, high likelihood of at least one significant coronary narrowing) *The calcium heart score quantifies the burden of coronary calcification/plaque in the coronary arteries. The calcium heart score is not able to evaluate the presence or burden of non-calcified (i.e. soft) plaque. There is no identifiable calcification in the aortic valve, mitral annulus or mitral valve, pericardium, or myocardium. Coronary CT Angiography The coronary arterial system is right dominant. Quantitative Stenosis Grading: Left Main (LM): The left main originates normally from the left sinus of Valsalva. The LM bifurcates into the left anterior descending artery and left circumflex artery. The LM is patent with no evidence of atherosclerosis. Left Anterior Descending (LAD) and Diagonal Branches: The LAD gives off 2 diagonal branch(es). The LAD and its branches are patent with no evidence of atherosclerosis. There is no evidence of LAD-myocardial bridge. Left Circumflex (LCX) and Obtuse Marginals (OM): The LCX gives off 1 Obtuse Marginal (OM) branch(es). The LCX and its branches are patent with no evidence of atherosclerosis. Right Coronary Artery (RCA): The RCA originates normally from the right sinus of Valsalva. The RCA gives off a posterior descending artery (PDA) and posterolateral (PL) branches. The RCA and its branches are patent with no evidence of atherosclerosis. Non-Coronary Cardiac Findings: Analysis of the left ventricular (LV) structure and function was performed after 3-D reconstruction of the LV from axial images, with user-corrected automatic contouring for assessment of LV volumes and user-defined reconstruction from oblique planes for measurement of 3-D cardiac structure and function. -The left ventricle systolic function is normal. -There is no left atrial appendage filling defect. Two right pulmonary veins and two left pulmonary veins drain normally into the left atrium. -No pericardial thickening or calcification. -Central and branch pulmonary arteries in the [id number] are unremarkable. -Thoracic aorta within the visualized thoracic aortic-branches in the [id number] is unremarkable. Extracardiac Structures No significant extra-cardiac findings. Note, however, that this study is focused on the cardiac findings. IMPRESSION -Absence of coronary calcification with an Agatston score = 0 using the AJ-130 method. -No evidence of significant flow-limiting atherosclerosis of the coronary arteries. -No evidence of coronary anomalies or myocardial bridges. -CAD-RADS 0. Management recommendations per ACC/AHA guidelines*, as clinically appropriate. *Recommendations: CAD RADS 0: Reassurance. Consider non-atherosclerotic causes of chest pain. CAD RADS 1: Consider non-atherosclerotic causes of chest pain. Consider preventive therapy and risk factor modification. CAD RADS 2: Consider non-atherosclerotic causes of chest pain. Consider preventive therapy and risk factor modification, particularly for patients with nonobstructive plaque in multiple segments. CAD RADS 3: Consider further functional testing. Consider symptom-guided anti-ischemic and preventive pharmacotherapy as well as risk factor modification per published guideline statements. CAD RADS 4A: Consider further functional testing or invasive coronary angiography with revascularization per published guideline statements. Consider symptom-guided anti-ischemic and preventive pharmacotherapy as well as risk factor modification per published guideline statements. CAD RADS 4B: Invasive coronary angiography recommended with revascularization per published guideline statements. Consider symptom-guided anti-ischemic and preventive pharmacotherapy as well as risk factor modification per published guideline statements. CAD RADS 5: Consider invasive angiography and/or viability assessment with revascularization per published guideline statements. Consider symptom-guided anti-ischemic and preventive pharmacotherapy as well as risk factor modification per published guideline statements. CRITICAL RESULT None COMMUNICATION Per this written report The coronary and cardiac findings of this CCTA were reviewed, reported, and signed by Rylan Carey MD ([employer]) Conclusion Electronically signed by : Azul Carey MD 10/23/2024 15:41:39
[2024-10-23 13:30] VITALS: BP 123/84; PULSE 62; RESP 18; O2SAT 100
[2024-10-23 13:33] VITALS: BP 103/59; PULSE 65; RESP 18; O2SAT 100
[2024-10-23 13:37] VITALS: BP 116/68; PULSE 87; RESP 18; O2SAT 100
[2024-10-23] MEDS: 0.9 % SODIUM CHLORIDE 50 ML VIAL IV (13:54)
[2024-10-23] MEDS: SODIUM CHLORIDE 0.9% 10ML SYR (RAD ONLY) 10 ML IV (13:55)
[2024-10-23] MEDS: IOPAMIDOL-370 (76%);100ML BOTTLE 85 ML IV (13:55)
== END 2024-10-23 23:59 | disposition home or self-care (01) ==
PROVIDERS: PCP Family Medicine; Visit Provider Nurse Practitioner
DX: I47.10 Supraventricular tachycardia, unspecified (principal); R55 Syncope and collapse; R07.9 Chest pain, unspecified
CPT/HCPCS: 75574; 81025; 93306; Q9967